=== PATIENT | female | born 1960 | race Caucasian/White ===

== ENCOUNTER → 2017-02-03 | Outpatient (CLI) | payer BC ==
--- NOTE | 2017-02-06 10:45 | MM ---
Reason for exam: screening (asymptomatic). Last mammogram was performed 1 year and 4 months ago. History: Patient is postmenopausal. Family history of breast cancer in mother at age 59, breast cancer in maternal grandmother at age 69, and breast cancer in cousin. Benign left mammotome panel of the left breast, January 25, 2012. Took hormonal contraceptives for 10 years. Physical Findings: A clinical breast exam by your physician is recommended on an annual basis and results should be correlated with mammographic findings. MG 3D Screening Mammo W/Cad Bilateral CC and MLO view(s) were taken. Prior study comparison: September 28, 2015, bilateral MG screening mammo w CAD. February 21, 2014, bilateral MG screening mammo w CAD. There are scattered fibroglandular densities. No suspicious abnormality. No significant changes when compared with prior studies. ASSESSMENT: Negative, BI-RAD 1 RECOMMENDATION: Routine screening mammogram of both breasts in 1 year.
== END | disposition home or self-care (01) ==
LOC: RADMAMWWP 09:04
PROVIDERS: ATTEND Family Medicine
DX: Z12.31 Encounter for screening mammogram for malignant neoplasm of breast (principal); Z80.3 Family history of malignant neoplasm of breast
CPT/HCPCS: 77063; G0202

== ENCOUNTER 2018-03-16 06:53 | Day surgery (SDC) | payer BC ==
[2018-03-14 16:03] VITALS: BMI 45.3
[~2018-03-16 06:53] MED LIST: LACTATED RINGERS 1,000 ML IV SCH
[2018-03-16] MEDS ORDERED: LACTATED RINGERS 1,000 ML IV ONE (07:04)
[2018-03-16 07:13] VITALS: TEMP 98.6
[2018-03-16 07:18] LABS: Glucose,Whole Blood 138 mg/dL (75-99)
[2018-03-16] MEDS ORDERED: PROPOFOL 10 MG/ML 20 ML VIAL IV ONE (07:40)
[2018-03-16] MEDS ORDERED: LIDOCAINE 1% INJ 10MG/ML (20 ML MDV) ONE (07:40)
--- NOTE | 2018-03-16 07:58 | P.PCN ---
Date of Procedure: 03/16/18 Procedure(s) Performed: BRIEF HISTORY: Patient is a 57-year-old pleasant female, scheduled for an elective colonoscopy as a part of screening for colorectal neoplasia. PROCEDURE PERFORMED: Colonoscopy with biopsy and snare polypectomy. PREOPERATIVE DIAGNOSIS: Screening for colon cancer. IV sedation per Anesthesia. PROCEDURE: After informed consent was obtained, the patient, was brought into the endoscopy unit. IV sedation was administered by Anesthesia under continuous monitoring. Digital rectal examination was normal. Initially the Olympus CF- 160 flexible video colonoscope was then inserted in the rectum, gradually advanced into the cecum without any difficulty. Careful examination was performed as the scope was gradually being withdrawn. Ileocecal valve and the appendiceal orifice were visualized and appeared normal. Prep was excellent. Mucosa of the cecum, ascending colon, transverse colon, appeared normal. In the descending colon there was a 3-4 mm sessile polyp removed by cold biopsy. In the sigmoid colon there was a 1 cm centimeter polyp removed by snare polypectomy. Rest of the descending colon, sigmoid colon, and rectum appeared normal. Retroflexion was performed in the rectum and no lesions were seen. The patient tolerated the procedure well. IMPRESSION: 3-4 mm sessile descending colon polyp status post removal by cold biopsy 1 cm pedunculated sigmoid colon polyp status post snare polypectomy RECOMMENDATIONS: Findings of this examination were discussed with the patient as well as her family. She was advised to follow with the biopsy results. She can have a repeat surveillance colonoscopy in 3 years from now based the biopsy results.
[2018-03-16 08:04] VITALS: RESP 16
[2018-03-16 08:29] VITALS: BP 153/88; PULSE 78
== END 2018-03-16 09:00 | disposition home or self-care (01) ==
LOC: ORWHC2ENDO 06:53
PROVIDERS: ATTEND Internal Medicine Gastroenterology
DX: Z12.11 Encounter for screening for malignant neoplasm of colon (principal); K63.5 Polyp of colon; D12.5 Benign neoplasm of sigmoid colon; E11.9 Type 2 diabetes mellitus without complications; J45.909 Unspecified asthma, uncomplicated; I10 Essential (primary) hypertension; E78.5 Hyperlipidemia, unspecified; Z88.0 Allergy status to penicillin; Z88.8 Allergy status to other drugs, medicaments and biological substances; Z79.84 Long term (current) use of oral hypoglycemic drugs; Z79.899 Other long term (current) drug therapy
CPT/HCPCS: 88305; 45385; 45380; J2001; J2704

== ENCOUNTER → 2018-03-23 | Outpatient (CLI) | payer BC ==
--- NOTE | 2018-03-26 13:21 | MM ---
Reason for exam: screening (asymptomatic). Last mammogram was performed 1 year and 2 months ago. History: Patient is postmenopausal. Family history of breast cancer in mother at age 59, breast cancer in maternal grandmother at age 69, and breast cancer in cousin. Benign left mammotome panel of the left breast, January 25, 2012. Took hormonal contraceptives for 10 years. Physical Findings: A clinical breast exam by your physician is recommended on an annual basis and results should be correlated with mammographic findings. MG 3D Screening Mammo W/Cad Bilateral CC, MLO, and XCCL view(s) were taken. Prior study comparison: February 03, 2017, bilateral MG 3d screening mammo w/cad. September 28, 2015, bilateral MG screening mammo w CAD. The breast tissue is almost entirely fat. No significant changes when compared with prior studies. ASSESSMENT: Benign, BI-RAD 2 RECOMMENDATION: Routine screening mammogram of both breasts in 1 year.
== END | disposition home or self-care (01) ==
LOC: RADMAMWWP 14:16
PROVIDERS: ATTEND Family Medicine
DX: Z12.31 Encounter for screening mammogram for malignant neoplasm of breast (principal)
CPT/HCPCS: 77063; 77067

== ENCOUNTER 2019-03-19 20:52 | Emergency (ER) | payer BC ==
[2019-03-19 21:11] VITALS: RESP 18; TEMP 98.5
[2019-03-19] MEDS ORDERED: KETOROLAC 60 MG/2 ML VIAL IM STA (22:25)
--- NOTE | 2019-03-19 22:48 | XR ---
EXAMINATION TYPE: XR chest 2V DATE OF EXAM: 03/19/2019 COMPARISON: 01/30/2014 HISTORY: Neck pain TECHNIQUE: Frontal and lateral views of the chest are obtained. FINDINGS: Heart and mediastinum are normal. Lungs are clear. Diaphragm is normal. Bony thorax appear s normal. There is cervical spine fusion surgery. IMPRESSION: No active cardiopulmonary disease. No change.
--- NOTE | 2019-03-19 23:45 | ED ---
Back Pain HPI - General Chief Complaint: Back Pain/Injury Stated Complaint: back pain Time Seen by Provider: 03/19/19 21:10 Source: patient Limitations: no limitations - History of Present Illness Initial Comments: The patient is a 58-year-old female who presents to the emergency department with reported back pain. She reports that the pain has been present for the past several days. She describes it as a sharp shooting sensation which starts in between her scapula and spinal column on the left side. The pain then radiates forward through to her breast. She states the pain is worse with movement and better with rest. She denies a pleuritic chest pain. No history of DVTs or PEs. No family history of blood clotting disorders. No recent travel or surgeries. Denies any calf pain or swelling. Denies a history of cardiac disease. Denies any anterior chest pain or shortness of breath. Does report recent upper respiratory infection were she had a persistent cough for 3 weeks. States that this has improved after she was on a course of steroids. She denies hemoptysis. No associated nausea, vomiting or diaphoresis. Does admit to a history of similar in the past for which he was diagnosed as a "musculoskeletal" etiology. Denies any abdominal pain or changes in her bowel or bladder habits. There are no alleviating, precipitating or modifying factors - Related Data Home Medications Medication Instructions Recorded Confirmed Sertraline [Zoloft] 100 mg PO DAILY 10/24/13 03/19/19 Atorvastatin [Lipitor] 40 mg PO HS 03/14/18 03/19/19 Budesonide/Formoterol Fumarate 2 puff INHALATION DAILY 03/14/18 03/19/19 [Symbicort 80-4.5 Mcg Inhaler] Metoprolol Tartrate [Lopressor] 100 mg PO BID 03/14/18 03/19/19 Pioglitazone HCl 45 mg PO DAILY 03/14/18 03/19/19 amLODIPine BESYLATE/BENAZEPRIL 1 tab PO DAILY 03/14/18 03/19/19 [amLODIPine BESYLATE/BENAZEPRIL 10-20 MG] glipiZIDE [Glucotrol] 10 mg PO BID 03/14/18 03/19/19 Fluticasone Nasal Wagoner [Flonase 1 spray EA NOSTRIL DAILY 03/19/19 03/19/19 Nasal Wagoner] Previous Rx's Medication Instructions Recorded Ibuprofen [Motrin] 600 mg PO Q8HR PRN #20 tab 03/19/19 Methocarbamol [Robaxin] 500 mg PO TID PRN #15 tab 03/19/19 Allergies Allergy/AdvReac Type Severity Reaction Status Date / Time Penicillins Allergy Rash/Hives Verified 03/19/19 23:02 metformin AdvReac Diarrhea Verified 03/19/19 23:02 Review of Systems ROS Statement: Those systems with pertinent positive or pertinent negative responses have been documented in the HPI. ROS Other: All systems not noted in ROS Statement are negative. Past Medical History Past Medical History: Asthma, Diabetes Mellitus, Hyperlipidemia, Hypertension History of Any Multi-Drug Resistant Organisms: None Reported Past Surgical History: Section Additional Past Surgical History / Comment(s): CERVICAL FUSION Past Anesthesia/Blood Transfusion Reactions: No Reported Reaction Past Psychological History: Anxiety Smoking Status: Never smoker Past Alcohol Use History: None Reported Past Drug Use History: None Reported - Past Family History Mother Family Medical History: Cancer General Exam Limitations: no limitations General appearance: alert, in no apparent distress Head exam: Present: atraumatic, normocephalic, normal inspection Eye exam: Present: normal appearance, PERRL, EOMI. Absent: scleral icterus, conjunctival injection, periorbital swelling ENT exam: Present: normal exam, mucous membranes moist Neck exam: Present: normal inspection. Absent: tenderness, meningismus, lymphadenopathy Respiratory exam: Present: normal lung sounds bilaterally. Absent: respiratory distress, wheezes, rales, rhonchi, stridor Cardiovascular Exam: Present: regular rate, normal rhythm, normal heart sounds. Absent: systolic murmur, diastolic murmur, rubs, gallop, clicks GI/Abdominal exam: Present: soft, normal bowel sounds. Absent: distended, tenderness, guarding, rebound, rigid Extremities exam: Present: normal inspection, full ROM, normal capillary refill. Absent: tenderness, pedal edema, joint swelling, calf tenderness Back exam: Present: normal inspection, tenderness (to palpation of rhomboid muscle on the left. ), muscle spasm Neurological exam: Present: alert, oriented X3, CN II-XII intact Psychiatric exam: Present: normal affect, normal mood Skin exam: Present: warm, dry, intact, normal color. Absent: rash Course Vital Signs 03/19/19 03/20/19 21:08 00:00 Temperature 98.5 F 98.5 F Pulse Rate 80 75 Respiratory 18 18 Rate Blood Pressure 154/71 150/68 O2 Sat by Pulse 96 96 Oximetry Medical Decision Making - Medical Decision Making Upon arrival the patient is placed in room 31. Physical exam is performed. The patient's pain is reproducible upon palpation. I did discuss diagnosis, differential and treatment options. I did recommend laboratory studies, chest x-ray and an EKG. The patient refused laboratory studies stating she did believe that it was musculoskeletal in nature and her son needed to work in the morning. She does allow me to complete an EKG and a chest x-ray. She is given 30 mg IM Toradol. Upon return the results I did discuss them with the patient. Chest x-ray is essentially unremarkable. She does report that her pain is markedly improved with the Toradol administration. I did discuss diagnosis, differential and treatment options. At this time the patient will be discharged home. She is instructed take Motrin every 6 hours as needed. She may also take a muscle relaxer. I did discuss the side effect profile of the medication. She is to not work or drive while taking the medications. The patient understood this. She needs to follow up with the primary care doctor within 2-4 days. If she has any new or worsening symptoms she should return to the emergency room. The patient was then discharged home in stable condition - EKG Data EKG Comments: EKG demonstrates a normal sinus rhythm with a ventricular rate of 60. NM interval 160. QRS 82. QTC 435. No acute ST segment elevations or depressions concerning for ischemic changes Disposition Clinical Impression: Chest wall pain Disposition: HOME SELF-CARE Condition: Stable Instructions (If sedation given, give patient instructions): Costochondritis (ED) Additional Instructions: Please follow-up with your primary care doctor within 2-4 days. Return to the emergency room for any new or worsening symptoms Prescriptions: Ibuprofen [Motrin] 600 mg PO Q8HR PRN #20 tab PRN Reason: Pain Methocarbamol [Robaxin] 500 mg PO TID PRN #15 tab PRN Reason: muscle spasms Is patient prescribed a controlled substance at d/c from ED?: No Referrals: Raheel Hernandez DO [Primary Care Provider] - 1-2 days Time of Disposition: 23:45
[2019-03-20 00:08] VITALS: BP 150/68; PULSE 75
== END 2019-03-20 | disposition home or self-care (01) ==
LOC: EC 20:52
DX: R07.89 Other chest pain (principal); M62.830 Muscle spasm of back; R05 Cough; J45.909 Unspecified asthma, uncomplicated; E11.9 Type 2 diabetes mellitus without complications; E78.5 Hyperlipidemia, unspecified; I10 Essential (primary) hypertension; F41.9 Anxiety disorder, unspecified; Z88.0 Allergy status to penicillin; Z88.8 Allergy status to other drugs, medicaments and biological substances; Z79.51 Long term (current) use of inhaled steroids; Z79.84 Long term (current) use of oral hypoglycemic drugs; Z79.899 Other long term (current) drug therapy; Z98.1 Arthrodesis status
CPT/HCPCS: 99283; 96372; 93005; 71046; J1885

== ENCOUNTER → 2019-03-25 | Outpatient (CLI) | payer BC ==
--- NOTE | 2019-03-26 09:16 | MM ---
Reason for exam: screening (asymptomatic). Last mammogram was performed 1 year ago. History: Patient is postmenopausal. Family history of breast cancer in mother at age 59, breast cancer in maternal grandmother at age 69, and breast cancer in cousin. Benign left mammotome panel of the left breast, January 25, 2012. Took hormonal contraceptives for 10 years. Physical Findings: A clinical breast exam by your physician is recommended on an annual basis and results should be correlated with mammographic findings. MG Screening Mammo w CAD Bilateral CC and MLO view(s) were taken. Prior study comparison: March 23, 2018, bilateral MG 3d screening mammo w/cad. February 03, 2017, bilateral MG 3d screening mammo w/cad. There are scattered fibroglandular densities. There is no discrete abnormality. No significant changes when compared with prior studies. ASSESSMENT: Negative, BI-RAD 1 RECOMMENDATION: Routine screening mammogram of both breasts in 1 year.
== END | disposition home or self-care (01) ==
LOC: RADMAMWWP 10:00
PROVIDERS: ATTEND Family Medicine
DX: Z12.31 Encounter for screening mammogram for malignant neoplasm of breast (principal)
CPT/HCPCS: 77067

== ENCOUNTER → 2021-01-19 | Outpatient (CLI) | payer BC ==
--- NOTE | 2021-01-20 10:29 | ECHOF ---
Referral Reason:R01.1 Cardiac murmur MEASUREMENTS -------- HEIGHT: 152.4 cm WEIGHT: 117.9 kg BP: RVIDd: 3.1 cm (< 3.3) IVSd: 0.9 cm (0.6 - 1.1) LVIDd: 4.5 cm (3.9 - 5.3) LVPWd: 1.7 cm (0.6 - 1.1) IVSs: 1.3 cm LVIDs: 3.5 cm LVPWs: 1.8 cm LA Diam: 4.6 cm (2.7 - 3.8) Ao Diam: 2.6 cm (2.0 - 3.7) LA Diam: 4.7 cm (2.7 - 3.8) MV EXCURSION: 14.789 mm (> 18.000) MV EF SLOPE: 62 mm/s (70 - 150) EPSS: 0.3 cm MV E Mahad: 1.17 m/s MV DecT: 151 ms MV A Mahad: 0.91 m/s MV E/A Ratio: 1.29 AV maxP.97 mmHg AV meanP.99 mmHg RAP: 5.00 mmHg RVSP: 27.07 mmHg FINDINGS -------- Sinus rhythm. Morbid Obesity The left ventricular size is normal. There is mild concentric left ventricular hypertrophy. Overa ll left ventricular systolic function is low-normal with, an EF between 50 - 55 %. The right ventricle is normal in size. The left atrium is mildly dilated. The right atrial size is normal. The aortic valve was not well visualized. There is mild aortic stenosis present. Peak/mean gradie nt across the Aortic Valve is 19.97mmHg / 10.99mmHg. Mild mitral regurgitation is present. Mild tricuspid regurgitation present. Right ventricular systolic pressure is normal at < 35 mmHg. The pulmonic valve was not well visualized. There is no pericardial effusion. CONCLUSIONS -------- 1. Morbid Obesity 2. The left ventricular size is normal. 3. There is mild concentric left ventricular hypertrophy. 4. Overall left ventricular systolic function is low-normal with, an EF between 50 - 55 %. 5. The right ventricle is normal in size. 6. The left atrium is mildly dilated. 7. The right atrial size is normal. 8. The aortic valve was not well visualized. 9. There is mild aortic stenosis present. 10. Mild mitral regurgitation is present. 11. Mild tricuspid regurgitation present. 12. The pulmonic valve was not well visualized. 13. There is no pericardial effusion. MANAGER CONFIGURATION: Greta Acevedo RDCS
== END | disposition home or self-care (01) ==
LOC: RADECHMAIN 15:57
PROVIDERS: ATTEND Physician Assistant Medical
DX: I08.1 Rheumatic disorders of both mitral and tricuspid valves (principal); E66.01 Morbid (severe) obesity due to excess calories
CPT/HCPCS: 93306

== ENCOUNTER 2022-02-26 13:38 | Inpatient (IN) | payer BC ==
[2022-02-26] MEDS ORDERED: IPRATROPIUM-ALBUTEROL 3 ML NEB INHALATION STA (15:19)
[2022-02-26] MEDS ORDERED: SODIUM CHLORIDE 0.9% 1,000 ML IV STA (15:19)
[2022-02-26] MEDS ORDERED: methylPREDNISolone SOD SUCCI 125 MG/2 ML VIAL IV STA (15:19)
[2022-02-26 16:41] LABS: Albumin 3.4 g/dL (3.5-5.0); Potassium 4.2 mmol/L (3.5-5.1); Total Bilirubin 1.2 mg/dL (0.2-1.3); Total Protein 6.5 g/dL (6.3-8.2)
--- NOTE | 2022-02-26 16:41 | ED ---
SOB HPI - General Chief Complaint: Shortness of Breath Stated Complaint: Dehydration,Cough Time Seen by Provider: 02/26/22 15:09 Source: patient Mode of arrival: wheelchair Limitations: no limitations - History of Present Illness Initial Comments: This 61-year-old female presents with a complaint of some cough and shortness of breath. She also feels somewhat weak. She states that her symptoms came on 5 days ago. She's had some dry heaves initially but then this seemed to resolve. She gets short of breath with exertion. She denies any actual fever or chest pain. She states that her urine was dark at one point. She denies any leg pain or swelling. She denies any history of PE or DVT. She does relate a history of COPD. She does take inhalers in this regard. She denies any other complaints or modifying factors. She states that her cough has only been productive with no production. She does follow up with Dr. Abernathy regularly as she was diagnosed with a heart murmur. She did not require any treatment in this regard. She is status post follow-up with them this month. The patient denies any history of atrial fibrillation in the past or any known heart arrhythmias. She denies being on any blood thinners other than aspirin. - Related Data Home Medications Medication Instructions Recorded Confirmed Sertraline [Zoloft] 100 mg PO DIRECTED 10/24/13 02/26/22 Atorvastatin [Lipitor] 40 mg PO DIRECTED 03/14/18 02/26/22 Metoprolol Tartrate [Lopressor] 100 mg PO DIRECTED 03/14/18 02/26/22 Pioglitazone HCl 45 mg PO DIRECTED 03/14/18 02/26/22 amLODIPine BESYLATE/BENAZEPRIL 1 tab PO DIRECTED 03/14/18 02/26/22 [amLODIPine BESYLATE/BENAZEPRIL 10-20 MG] glipiZIDE [Glucotrol] 10 mg PO BID 03/14/18 02/26/22 Albuterol Sulfate [Albuterol 2 puff PO RT-Q6H PRN 02/26/22 02/26/22 Sulfate Hfa] Aspirin EC [Ecotrin Low Dose] 81 mg PO HS 02/26/22 02/26/22 Fluticasone Propion/Salmeterol 1 puff INHALATION RT-BID 02/26/22 02/26/22 [Fluticasone-Salmeterol 113-14] Allergies Allergy/AdvReac Type Severity Reaction Status Date / Time Penicillins Allergy Rash/Hives Verified 02/26/22 14:25 metformin AdvReac Diarrhea Verified 02/26/22 14:25 Review of Systems ROS Statement: Those systems with pertinent positive or pertinent negative responses have been documented in the HPI. ROS Other: All systems not noted in ROS Statement are negative. Past Medical History Past Medical History: Asthma, Diabetes Mellitus, Hyperlipidemia, Hypertension History of Any Multi-Drug Resistant Organisms: None Reported Past Surgical History: Section Additional Past Surgical History / Comment(s): CERVICAL FUSION Past Anesthesia/Blood Transfusion Reactions: No Reported Reaction Past Psychological History: Anxiety Past Alcohol Use History: None Reported Past Drug Use History: None Reported - Past Family History Mother Family Medical History: Cancer General Exam - General Exam Comments Initial Comments: GENERAL: The patient is well nourished and well hydrated. Increased body mass index is noted. VITAL SIGNS: Heart rate, blood pressure, respiratory rate reviewed as recorded in nurse's notes. EYES: Pupils are round and reactive. Extraocular movements are intact. No conjunctival / lid redness or swelling. ENT: No external evidence of injury, swelling, or ecchymosis. Airway is patent. Throat is clear. NECK: Nontender. No swelling or evidence of injury. No subcutaneous emphysema. Trachea is midline. No thyroid mass. HEART: Regular rate and rhythm. Good peripheral pulses. LUNGS/CHEST: Breath sounds clear and equal bilaterally. No rales, rhonchi, or wheezes. No ecchymosis, subcutaneous emphysema, or tenderness. ABDOMEN: Abdomen soft without tenderness. No palpable masses or organomegaly. No peritoneal signs. No abdominal wall swelling or ecchymosis. EXTREMITIES: No extremity tenderness. Normal muscle tone and function. No thoracolumbar tenderness. NEUROLOGIC: Sensation is grossly intact. Cranial nerve exam reveals face is symmetrical, tongue is midline, speech is clear. SKIN: No abrasions or ecchymosis is noted. No induration or masses noted. PSYCHIATRIC: Alert and oriented. Appropriate behavior and judgment. Limitations: no limitations Course Vital Signs 02/26/22 02/26/22 02/26/22 14:19 16:00 16:37 Temperature 97.5 F L Pulse Rate 109 H 100 Respiratory 16 24 Rate Blood Pressure 112/54 O2 Sat by Pulse 90 L Oximetry 02/26/22 02/26/22 16:45 17:44 Temperature Pulse Rate 106 H 111 H Respiratory 24 Rate Blood Pressure 135/56 O2 Sat by Pulse 92 L Oximetry Medical Decision Making - Medical Decision Making The patient was seen and examined. All diagnostics were reviewed. 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 Her pulse ox initially is 90% on room air. The patient also had a x-ray of the chest and this does show pneumonia. There is markedly change as compared to previous chest x-ray in 2019. Laboratory shows white blood cell count is elevated. Her blood sugar also is elevated as well as her kidney function studies. Her sodium and chloride are slightly low. She is given some IV fluid hydration. Her troponin came back elevated. Significant fluid hydration is not given due to cardiac status and prevention of fluid overload. Case is discussed with internal med icishanta, Dr. Ovalle and she is agreeable with admission. Patient is started on Rocephin and Zithromax. She receives a DuoNeb breathing treatment. She also receives oxygen and is at 93% on 2 L per nasal cannula on recheck. She relates that she is feeling slightly improved. It is felt as though she likely would qualify for full admission. In addition, the EKG shows atrial fibrillation with rapid ventricular response at 116. There is no acute ST-T wave changes noted. The QRS duration is 97 and the QTc interval is 390. This appears to be new- onset atrial fibrillation. Patient is started on heparin intravenously. Cardiology consult is also placed. When watched on the monitor her heart rate is averaging between 101 105 and it is not felt as though at this time she would require IV Cardizem. She was given a 500 mL bolus to see if this would help with heart rate. - Lab Data Result diagrams: 02/26/22 17:18 02/26/22 15:25 Lab Results 02/26/22 02/26/22 02/26/22 Range/Units 15:25 15:25 15:25 WBC (3.8-10.6) k/uL RBC (3.80-5.40) m/uL Hgb (11.4-16.0) gm/dL Hct (34.0-46.0) % MCV (80.0-100.0) fL MCH (25.0-35.0) pg MCHC (31.0-37.0) g/dL RDW (11.5-15.5) % Plt Count (150-450) k/uL MPV Neutrophils % % Lymphocytes % % Monocytes % % Eosinophils % % Basophils % % Neutrophils # (1.3-7.7) k/uL Lymphocytes # (1.0-4.8) k/uL Monocytes # (0-1.0) k/uL Eosinophils # (0-0.7) k/uL Basophils # (0-0.2) k/uL PT 10.0 (9.0-12.0) sec INR 0.9 (<1.2) APTT 22.6 (22.0-30.0) sec Sodium 128 L (137-145) mmol/L Potassium 4.2 (3.5-5.1) mmol/L Chloride 90 L (98-107) mmol/L Carbon Dioxide 23 (22-30) mmol/L Anion Gap 15 mmol/L BUN 84 H (7-17) mg/dL Creatinine 1.71 H (0.52-1.04) mg/dL Est GFR (CKD-EPI)AfAm 36 (>60 ml/min/1.73 sqM) Est GFR (CKD-EPI)NonAf 31 (>60 ml/min/1.73 sqM) Glucose 289 H (74-99) mg/dL Plasma Lactic Acid Kade 1.3 (0.7-2.0) mmol/L Calcium 9.0 (8.4-10.2) mg/dL Total Bilirubin 1.2 (0.2-1.3) mg/dL AST 46 H (14-36) U/L ALT 27 (4-34) U/L Alkaline Phosphatase 85 (38-126) U/L Troponin I (0.000-0.034) ng/mL NT-Pro-B Natriuret Pep pg/mL Total Protein 6.5 (6.3-8.2) g/dL Albumin 3.4 L (3.5-5.0) g/dL Coronavirus (PCR) (Not Detectd) Influenza Type A RNA (Not Detectd) Influenza Type B (PCR) (Not Detectd) 02/26/22 02/26/22 02/26/22 Range/Units 15:25 15:25 15:25 WBC (3.8-10.6) k/uL RBC (3.80-5.40) m/uL Hgb (11.4-16.0) gm/dL Hct (34.0-46.0) % MCV (80.0-100.0) fL MCH (25.0-35.0) pg MCHC (31.0-37.0) g/dL RDW (11.5-15.5) % Plt Count (150-450) k/uL MPV Neutrophils % % Lymphocytes % % Monocytes % % Eosinophils % % Basophils % % Neutrophils # (1.3-7.7) k/uL Lymphocytes # (1.0-4.8) k/uL Monocytes # (0-1.0) k/uL Eosinophils # (0-0.7) k/uL Basophils # (0-0.2) k/uL PT (9.0-12.0) sec INR (<1.2) APTT (22.0-30.0) sec Sodium (137-145) mmol/L Potassium (3.5-5.1) mmol/L Chloride (98-107) mmol/L Carbon Dioxide (22-30) mmol/L Anion Gap mmol/L BUN (7-17) mg/dL Creatinine (0.52-1.04) mg/dL Est GFR (CKD-EPI)AfAm (>60 ml/min/1.73 sqM) Est GFR (CKD-EPI)NonAf (>60 ml/min/1.73 sqM) Glucose (74-99) mg/dL Plasma Lactic Acid Kade (0.7-2.0) mmol/L Calcium (8.4-10.2) mg/dL Total Bilirubin (0.2-1.3) mg/dL AST (14-36) U/L ALT (4-34) U/L Alkaline Phosphatase (38-126) U/L Troponin I 0.047 H* (0.000-0.034) ng/mL NT-Pro-B Natriuret Pep 83620 pg/mL Total Protein (6.3-8.2) g/dL Albumin (3.5-5.0) g/dL Coronavirus (PCR) (Not Detectd) Influenza Type A RNA Not Detected (Not Detectd) Influenza Type B (PCR) Not Detected (Not Detectd) 02/26/22 02/26/22 Range/Units 15:25 17:18 WBC 12.5 H (3.8-10.6) k/uL RBC 3.98 (3.80-5.40) m/uL Hgb 11.7 (11.4-16.0) gm/dL Hct 35.0 (34.0-46.0) % MCV 87.9 (80.0-100.0) fL MCH 29.3 (25.0-35.0) pg MCHC 33.4 (31.0-37.0) g/dL RDW 14.1 (11.5-15.5) % Plt Count 316 (150-450) k/uL MPV 9.4 Neutrophils % 85 % Lymphocytes % 9 % Monocytes % 5 % Eosinophils % 0 % Basophils % 0 % Neutrophils # 10.6 H (1.3-7.7) k/uL Lymphocytes # 1.1 (1.0-4.8) k/uL Monocytes # 0.6 (0-1.0) k/uL Eosinophils # 0.0 (0-0.7) k/uL Basophils # 0.0 (0-0.2) k/uL PT (9.0-12.0) sec INR (<1.2) APTT (22.0-30.0) sec Sodium (137-145) mmol/L Potassium (3.5-5.1) mmol/L Chloride (98-107) mmol/L Carbon Dioxide (22-30) mmol/L Anion Gap mmol/L BUN (7-17) mg/dL Creatinine (0.52-1.04) mg/dL Est GFR (CKD-EPI)AfAm (>60 ml/min/1.73 sqM) Est GFR (CKD-EPI)NonAf (>60 ml/min/1.73 sqM) Glucose (74-99) mg/dL Plasma Lactic Acid Kade (0.7-2.0) mmol/L Calcium (8.4-10.2) mg/dL Total Bilirubin (0.2-1.3) mg/dL AST (14-36) U/L ALT (4-34) U/L Alkaline Phosphatase (38-126) U/L Troponin I (0.000-0.034) ng/mL NT-Pro-B Natriuret Pep pg/mL Total Protein (6.3-8.2) g/dL Albumin (3.5-5.0) g/dL Coronavirus (PCR) Not Detected (Not Detectd) Influenza Type A RNA (Not Detectd) Influenza Type B (PCR) (Not Detectd) Disposition Clinical Impression: Hypoxia, Dyspnea, Cough, Weakness, Pneumonia, Leukocytosis, Hyperglycemia, Acute kidney injury, Morbid obesity, Elevated troponin, Atrial fibrillation with rapid ventricular response, New onset atrial fibrillation Disposition: ADMITTED IP TO THIS HOSP Condition: Fair Is patient prescribed a controlled substance at d/c from ED?: No Referrals: Raheel Hernandez DO [Primary Care Provider] - 1-2 days Time of Disposition: 18:27 Decision Date: 02/26/22 Decision Time: 18:27
--- NOTE | 2022-02-26 17:03 | XR ---
EXAMINATION TYPE: XR chest 2V DATE OF EXAM: 02/26/2022 COMPARISON: 03/19/2019 HISTORY: Difficulty breathing TECHNIQUE: Frontal and lateral views of the chest are obtained. FINDINGS: There has been interval development of multiple focal areas partial airspace opacity in th e right lung consistent with an acute infiltrate. Left lung is clear. The heart and pulmonary vasculature are normal. The osseous structures are intact. IMPRESSION: Multifocal right lung airspace opacities consistent with acute inflammation, likely pneumonic infiltr ate.
[2022-02-26 17:45] LABS: Basophils % (A) 0 %; Eosinophils % (A) 0 %; HGB 11.7 gm/dL (11.4-16.0); Lymphocytes # (A) 1.1 k/uL (1.0-4.8); Lymphocytes % (A) 9 %; MCH 29.3 pg (25.0-35.0); MCHC 33.4 g/dL (31.0-37.0); MCV 87.9 fL (80.0-100.0); Mean Platelet Volume 9.4; Monocytes # (A) 0.6 k/uL (0-1.0); Monocytes % (A) 5 %; Neutrophils # (A) 10.6 k/uL (1.3-7.7); Neutrophils % (A) 85 %; Platelet Count 316 k/uL (150-450); RBC 3.98 m/uL (3.80-5.40); RDW 14.1 % (11.5-15.5); WBC 12.5 k/uL (3.8-10.6)
[2022-02-26] MEDS ORDERED: AZITHROMYCIN 500 MG in SODIUM CHLORIDE 0.9% 250 ML IVPB STA (18:10)
[2022-02-26] MEDS ORDERED: NITROGLYCERIN OINT 1 INCH/GM PACKET TOPICAL STA (18:10)
[2022-02-26] MEDS ORDERED: ASPIRIN 81 MG PO STA (18:10)
[2022-02-26] MEDS ORDERED: SODIUM CHLORIDE 0.9% 500 ML IV STA (18:41)
[2022-02-26 18:55] LABS: INR 0.9 (<1.2); Partial Thromboplastin Time 22.6 sec (22.0-30.0)
[2022-02-26] MEDS ORDERED: HEPARIN SODIUM 1,000 UN/ML (10ML VL) IV ONE (19:21)
[2022-02-26] MEDS ORDERED: HEPARIN SODIUM 1,000 UN/ML (10ML VL) IV PRN (19:21)
[2022-02-26] MEDS ORDERED: PNEUMONIA PROTOCOL UTILIZED 1 EACH MISC PO PRN (19:22)
[2022-02-26] MEDS ORDERED: DEXTROSE 50% SYRINGE 50 ML IVP PRN (19:26)
[2022-02-26] MEDS ORDERED: PIOGLITAZONE 45 MG TAB PO SCH (19:30)
[2022-02-26] MEDS ORDERED: HEPARIN SOD,PORK IN 0.45% NACL 25,000 UNIT in 0.45% NACL 1 250ML.BAG IV SCH (19:30)
[2022-02-26] MEDS ORDERED: NON FORMULARY DRUG (Amlodipine Besylate/Benazepril [Amlodipine Besylate/Benazepril 10-20 M PO SCH (19:30)
[2022-02-26] MEDS ORDERED: ACETAMINOPHEN TAB 325 MG TAB PO PRN (19:44)
--- NOTE | 2022-02-26 20:25 | P.HPIM ---
History of Present Illness H&P Date: 02/26/22 Chief Complaint: shortness of breath 61 year old female with diabetes mellitus on oral hypoglycemic, hypertension, COPD not on home oxygen patient comes in with 3-5 days history of progressive redness of breath, with minimal activity, and today became SOB at rest. denies any orthopnea or PNDs. she does have history of COPD not on home oxygen, she uses her inhalers normally twice a day, and this was not helping this time, denies any wheezing, denies any smoking or smoke exposure. she also report dry cough denies any hemoptysis , she also reports frequent dry heaving with bowel and urinary incontinence associated with the dry heaves. she denies any fever, chills, denies any known sick contacts. she denies any recent hospital stay , but she does report traveling long distance by care couple weeks ago, and she was in a dooley and did not take frequent stops. she denies any history of cancer or blood clots. but she did note that her legs were swollen however improved since then. she does endorse poor po intake , however, she is compliant with her meds. no other family members are sick at this time, she is vaccinated 3 times against covid she otherwise denies any urinary changes, diarrhea , GI bleeding, muscle aches, denies any sore throat, or body aches. denies any abd pain . in the ED , blood work showed elevated WBC , and hyponatremia , DC CXR suggestive of pneumonia , no pleural effusion slightly elevated troponin , denies any chest pain elevated pro BNP EKG showed no acute ST elevation , new onset Afib , she denies any history of afib . she does follow up with cardiology for a heart murmur denies any tobacco smoking, illicit drugs or alcohol . Review of Systems Pertinent positives as noted in HPI. All other systems were reviewed and are negative Past Medical History Past Medical History: Asthma, Diabetes Mellitus, Hyperlipidemia, Hypertension History of Any Multi-Drug Resistant Organisms: None Reported Past Surgical History: Section Additional Past Surgical History / Comment(s): CERVICAL FUSION Past Anesthesia/Blood Transfusion Reactions: No Reported Reaction Past Psychological History: Anxiety Past Alcohol Use History: None Reported Past Drug Use History: None Reported - Past Family History Mother Family Medical History: Cancer Medications and Allergies Home Medications Medication Instructions Recorded Confirmed Type Sertraline [Zoloft] 100 mg PO DIRECTED 10/24/13 02/26/22 History Atorvastatin [Lipitor] 40 mg PO DIRECTED 03/14/18 02/26/22 History Metoprolol Tartrate [Lopressor] 100 mg PO DIRECTED 03/14/18 02/26/22 History Pioglitazone HCl 45 mg PO DIRECTED 03/14/18 02/26/22 History amLODIPine BESYLATE/BENAZEPRIL 1 tab PO DIRECTED 03/14/18 02/26/22 History [amLODIPine BESYLATE/BENAZEPRIL 10-20 MG] glipiZIDE [Glucotrol] 10 mg PO BID 03/14/18 02/26/22 History Albuterol Sulfate [Albuterol 2 puff PO RT-Q6H PRN 02/26/22 02/26/22 History Sulfate Hfa] Aspirin EC [Ecotrin Low Dose] 81 mg PO HS 02/26/22 02/26/22 History Fluticasone Propion/Salmeterol 1 puff INHALATION RT-BID 02/26/22 02/26/22 History [Fluticasone-Salmeterol 113-14] Allergies Allergy/AdvReac Type Severity Reaction Status Date / Time Penicillins Allergy Rash/Hives Verified 02/26/22 14:25 metformin AdvReac Diarrhea Verified 02/26/22 14:25 Physical Exam Vitals: Vital Signs Temp Pulse Resp BP Pulse Ox 02/26/22 17:44 111 H 24 135/56 92 L 02/26/22 16:45 106 H 02/26/22 16:37 100 02/26/22 16:00 24 02/26/22 14:19 97.5 F L 109 H 16 112/54 90 L Intake and Output 02/26/22 02/26/22 02/26/22 06:59 14:59 22:59 Other: Weight 122.47 kg Constitutional: No acute distress, conversant, pleasant, morbid obesity Eyes: Anicteric sclerae, moist conjunctiva, Pupils equal round reactive to light ENMT: NC/AT Oropharynx clear, no erythema, or exudates Neck: Supple, no masses, or JVD No carotid bruits No thyromegaly Lungs: Clear to auscultation Clear to percussion Normal respiratory effort, no accessory muscle use Cardiovascular: Heart irregular in rate and rhythm, No murmurs, gallops, or rubs No peripheral edema Abdominal: Soft Nontender, no guarding, rebound or rigidity Abdomen moving with respiration Normoactive bowel sounds obese limiting exam No palpable mass No abdominal wall hernia noted Skin: Normal temperature, tone, texture, turgor No induration No subcutaneous nodules No rash, lesions No ulcers Extremities: No digital cyanosis No clubbing Pedal pulses intact and symmetrical Radial pulses intact and symmetrical No calf tenderness Psychiatric: Alert and oriented to person, place and time Appropriate affect fair judgement Neuro Muscles Strength 4/5 in all 4 extremities Sensation to light touch grossly present throughout Cranial nerves II-XII grossly intact No focal sensory deficits Lymphatics: no palpable cervical or supraclavicular , or inguinal lymph nodes Results CBC & Chem 7: 02/26/22 17:18 02/26/22 15:25 Labs: Abnormal Lab Results - Last 24 Hours (Table) 02/26/22 02/26/22 02/26/22 Range/Units 15:25 15:25 17:18 WBC 12.5 H (3.8-10.6) k/uL Neutrophils # 10.6 H (1.3-7.7) k/uL Sodium 128 L (137-145) mmol/L Chloride 90 L (98-107) mmol/L BUN 84 H (7-17) mg/dL Creatinine 1.71 H (0.52-1.04) mg/dL Glucose 289 H (74-99) mg/dL AST 46 H (14-36) U/L Troponin I 0.047 H* (0.000-0.034) ng/mL Albumin 3.4 L (3.5-5.0) g/dL Assessment and Plan Assessment: acute hypoxic respiratory failure sepsis secondary to community acquired pneumonia rule out PE , with history of long distance car travel, hypoxemia and new onset afib new onset afib with RVR hyponatremia , dehydration DC , prerenal ATN DM , on oral hypoglycemic agents , with hyperglycemia plan CXR showed right lobe multifocal infilterates follow up cultures check urine legionella CTA chest once renal function improve, to rule out lung mass , and if d dimer elevated to rule out PE empiric antibiotics with azithro and rocephin supplemental oxygen as needed to keep oxygen sat > 94% acute respiratory viral panel negative lactic acid within normal limits patient on heparin drip for new onset afib heart rate ranging in the 100-110, if heart rate persistently > 120 then will initiate Cardizem drip check echocardiogram , 2020 echo showed LVEF 50-55%, mild concentric hypertrophic cardiomyopathy , 1 L bolus saline given in ED continue with IVF hydration with normal saline at 130 cc per hour , if serum sodium worsens, then consider SIADH in the differential avoid nephrotoxic meds monitor sodium level , repeat at midnight then in AM 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
[2022-02-26] MEDS ORDERED: ONDANSETRON 4 MG/2 ML VIAL IVP PRN (20:26)
[2022-02-26] MEDS ORDERED: glipiZIDE 10 MG TAB PO SCH (21:00)
[2022-02-26] MEDS: SYMBICORT 160-4.5 MCG INHALER INHALATION SCH (21:15)
[2022-02-26 22:02] LABS: Glucose,Whole Blood 345 mg/dL (70-110)
[2022-02-26] MEDS: INSULIN ASPART (NovoLOG) 100 UNIT/ML VIAL SQ SCH (22:09)
[2022-02-26] MEDS: METOPROLOL TARTRATE 50 MG TAB PO SCH (22:10)
[2022-02-26] MEDS: ATORVASTATIN 40 MG TAB PO SCH (22:10)
[2022-02-26] MEDS: SERTRALINE 100 MG TAB PO SCH (22:10)
[2022-02-27] MEDS ORDERED: HEPARIN SODIUM 1,000 UN/ML (10ML VL) IV PRN (00:21)
[2022-02-27] MEDS: HEPARIN SOD,PORK IN 0.45% NACL 25,000 UNIT in 0.45% NACL 1 250ML.BAG IV SCH ×3 (00:47→22:25)
[2022-02-27 03:13] LABS: Partial Thromboplastin Time 46.7 sec (22.0-30.0); Prothrombin Time 10.7 sec (9.0-12.0)
[2022-02-27 06:08] LABS: Glucose,Whole Blood 345 mg/dL (70-110)
[2022-02-27] MEDS: INSULIN ASPART (NovoLOG) 100 UNIT/ML VIAL SQ SCH ×4 (06:33→20:10)
[2022-02-27] MEDS: METOPROLOL TARTRATE 50 MG TAB PO SCH ×2 (07:29→20:17)
[2022-02-27] MEDS: IPRATROPIUM-ALBUTEROL 3 ML NEB INHALATION PRN ×3 (08:28→16:35)
[2022-02-27] MEDS: SYMBICORT 160-4.5 MCG INHALER INHALATION SCH ×2 (08:28→20:19)
[2022-02-27 08:49] LABS: Amorphous Sediment,Urine Occasional /hpf; Appearance,Urine Cloudy (Clear); Bacteria,Urine Moderate /hpf; Bilirubin,Urine Negative (Negative); Blood,Urine Small (Negative); Color,Urine Yellow; Glucose,Urine (UA) 2+ (Negative); Hyaline Casts,Urine 48 /lpf (0-2); Ketones,Urine Negative (Negative); Leukocyte Esterase,Urine Small (Negative); Mucus,Urine Rare /hpf; Nitrite,Urine Negative (Negative); PH, Urine 5.5 (5.0-8.0); Protein,Urine Trace (Negative); RBC,Urine 1 /hpf (0-5); Specific Gravity,Urine 1.015 (1.001-1.035); Squamous Epithelial Cell,Urine 6 /hpf (0-4); WBC,Urine 3 /hpf (0-5)
[2022-02-27] MEDS ORDERED: amLODIPine 10 MG TAB PO SCH (09:00)
[2022-02-27] MEDS: AZITHROMYCIN 500 MG in SODIUM CHLORIDE 0.9% 250 ML IVPB SCH (09:16)
[2022-02-27 09:25] LABS: Basophils % (A) 0 %; Eosinophils % (A) 0 %; HCT 32.1 % (34.0-46.0); HGB 10.4 gm/dL (11.4-16.0); Hypochromasia Slight; Lymphocytes # (A) 1.1 k/uL (1.0-4.8); Lymphocytes % (A) 9 %; MCH 28.8 pg (25.0-35.0); MCHC 32.3 g/dL (31.0-37.0); Mean Platelet Volume 10.7; Monocytes # (A) 0.2 k/uL (0-1.0); Monocytes % (A) 2 %; Neutrophils # (A) 10.8 k/uL (1.3-7.7); Neutrophils % (A) 88 %; Platelet Count 250 k/uL (150-450); RDW 14.2 % (11.5-15.5); WBC 12.3 k/uL (3.8-10.6)
--- NOTE | 2022-02-27 10:30 | P.CRDCN ---
History of Present Illness History of present illness: This is Dr. Foster dictating an H/P on this patient The patient was interviewed and examined IMPRESSION / ASSESSMENT: Persistent atrial fibrillation with RVR in the setting of right lung pneumonitis New onset atrial fibrillation/first diagnosis of atrial fibrillation PLAN: Anticoagulation with heparin followed by ELIQUIS Rate control with oral beta blockers. She is currently on metoprolol 100 mg twice daily Continue antihypertensive therapy with amlodipine However she is diabetic and low dose VEDA inhibitor should be initiated even though her creatinine is 1.71 HPI patient presented to the hospital with cough and shortness of breath and weakness She's had symptoms for at least 5 days prior to admission she became a short of breath with minimal exertion When she came to the ER her chest x-ray confirmed a right-sided pneumonia However her twelve-lead EKG showed atrial fibrillation with RVR which is a new diagnosis for She normally sees Dr. Gray in the cardiology office and has an appointment coming up on the On my evaluation she was lying comfortably in bed and did not appear to be short of breath. She stated that she has been short of breath but she does not feel any palpitations or chest discomfort ROS: No fever chills or rigors, no cough, phlegm or expectoration, no nausea, vomiting or diarrhea, no hematuria, dysuria, no musculoskeletal complaints, no strokes or seizures, no skin lesions. EXAMINATION: 116/63 mmHg pulse rate 100 beats a minute afebrile Crackles in the right lung Heart sounds irregular no murmurs Morbid obesity REVIEW OF LABS, ECG & MEDICAL DATA Atrial fibrillation with RVR on twelve-lead EKG with biphasic T waves in V5 and V6 lead 1 Chest x-ray shows right lung airspace opacities consistent with pneumonic infiltrate Past history of hypertension, dyslipidemia and type 2 diabetes White count 12.5 thousand, hemoglobin 10.4 Sodium 129 Potassium 4.2 BUN 84 and creatinine 1.7 Elevated glucose levels Borderline troponins of unclear significance (BTUS) Past Medical History Past Medical History: Asthma, Diabetes Mellitus, Hyperlipidemia, Hypertension History of Any Multi-Drug Resistant Organisms: None Reported Past Surgical History: Section Additional Past Surgical History / Comment(s): CERVICAL FUSION Past Anesthesia/Blood Transfusion Reactions: No Reported Reaction Additional Past Anesthesia/Blood Transfusion Reaction / Comment(s): No history of blood transfusions Past Psychological History: Anxiety Past Alcohol Use History: None Reported Past Drug Use History: None Reported - Past Family History Mother Family Medical History: Cancer Medications and Allergies Home Medications Medication Instructions Recorded Confirmed Type Sertraline [Zoloft] 100 mg PO DIRECTED 10/24/13 02/26/22 History Atorvastatin [Lipitor] 40 mg PO DIRECTED 03/14/18 02/26/22 History Metoprolol Tartrate [Lopressor] 100 mg PO DIRECTED 03/14/18 02/26/22 History Pioglitazone HCl 45 mg PO DIRECTED 03/14/18 02/26/22 History amLODIPine BESYLATE/BENAZEPRIL 1 tab PO DIRECTED 03/14/18 02/26/22 History [amLODIPine BESYLATE/BENAZEPRIL 10-20 MG] glipiZIDE [Glucotrol] 10 mg PO BID 03/14/18 02/26/22 History Albuterol Sulfate [Albuterol 2 puff PO RT-Q6H PRN 02/26/22 02/26/22 History Sulfate Hfa] Aspirin EC [Ecotrin Low Dose] 81 mg PO HS 02/26/22 02/26/22 History Fluticasone Propion/Salmeterol 1 puff INHALATION RT-BID 02/26/22 02/26/22 History [Fluticasone-Salmeterol 113-14] Allergies Allergy/AdvReac Type Severity Reaction Status Date / Time Penicillins Allergy Rash/Hives Verified 02/26/22 14:25 metformin AdvReac Diarrhea Verified 02/26/22 14:25 Physical Exam Vitals: Vital Signs Temp Pulse Pulse Resp BP BP Pulse Ox 02/27/22 08:47 100 02/27/22 08:29 96 02/27/22 07:20 98.1 F 101 H 16 116/63 93 L 02/27/22 04:00 98.1 F 101 H 20 97/54 94 L 02/27/22 02:00 94 20 02/26/22 23:49 98.3 F 94 20 98/51 94 L 02/26/22 19:41 98.1 F 115 H 19 90/51 93 L 02/26/22 17:44 111 H 24 135/56 92 L 02/26/22 16:45 106 H 02/26/22 16:37 100 02/26/22 16:00 24 02/26/22 14:19 97.5 F L 109 H 16 112/54 90 L Intake and Output 02/26/22 02/27/22 02/27/22 22:59 06:59 14:59 Intake Total 240 178.524 Output Total 500 Balance 240 -321.476 Intake: Intake, IV Titration 178.524 Amount Heparin Sod,Pork in 0.45% 178.524 NaCl 25,000 unit In 0.45 % NaCl 1 250ml.bag @ 18 UNITS/KG/HR 22.045 mls/hr IV .[id number] [facility] Rx#: [id number] Oral 240 Output: Urine 500 Other: Voiding Method Toilet # Voids 2 Weight 122.47 kg Results 02/27/22 07:19 02/26/22 22:14 Cardiac Enzymes 02/26/22 02/26/22 02/27/22 Range/Units 15:25 15:25 01:17 AST 46 H (14-36) U/L Troponin I 0.047 H* 0.031 (0.000-0.034) ng/mL Coagulation 02/26/22 02/27/22 02/27/22 Range/Units 15:25 01:17 07:19 PT 10.0 10.7 (9.0-12.0) sec APTT 22.6 46.7 H 85.2 H (22.0-30.0) sec CBC 02/26/22 02/27/22 Range/Units 17:18 07:19 WBC 12.5 H 12.3 H (3.8-10.6) k/uL RBC 3.98 3.60 L (3.80-5.40) m/uL Hgb 11.7 10.4 L (11.4-16.0) gm/dL Hct 35.0 32.1 L (34.0-46.0) % Plt Count 316 250 (150-450) k/uL Comprehensive Metabolic Panel 02/26/22 02/26/22 Range/Units 15:25 22:14 Sodium 128 L 129 L (137-145) mmol/L Potassium 4.2 (3.5-5.1) mmol/L Chloride 90 L (98-107) mmol/L Carbon Dioxide 23 (22-30) mmol/L BUN 84 H (7-17) mg/dL Creatinine 1.71 H (0.52-1.04) mg/dL Glucose 289 H (74-99) mg/dL Calcium 9.0 (8.4-10.2) mg/dL AST 46 H (14-36) U/L ALT 27 (4-34) U/L Alkaline Phosphatase 85 (38-126) U/L Total Protein 6.5 (6.3-8.2) g/dL Albumin 3.4 L (3.5-5.0) g/dL Current Medications Generic Name Dose Route Start Last Admin Trade Name Freq PRN Reason Stop Dose Admin Acetaminophen 650 mg 02/26/22 19:44 Acetaminophen Tab 325 Mg Tab PO Q4HR PRN Fever and/ or Pain Albuterol/Ipratropium 3 ml 02/26/22 19:22 02/27/22 08:28 Ipratropium-Albuterol 3 Ml Neb INHALATION 3 ml RT-Q4H PRN Administration shortness of breath Amlodipine Besylate 10 mg 02/27/22 09:00 02/27/22 07:30 Amlodipine 10 Mg Tab PO 10 mg DAILY GRACIE Administration Aspirin 81 mg 02/27/22 21:00 Aspirin 81 Mg PO HS GRACIE Atorvastatin Calcium 40 mg 02/26/22 21:00 02/26/22 22:10 Atorvastatin 40 Mg Tab PO 40 mg HS GRACIE Administration Budesonide/Formoterol Fumarate 2 puff 02/26/22 20:00 02/27/22 08:28 Symbicort 160-4.5 Mcg Inhaler INHALATION 2 puff RT-BID GRACIE Administration Dextrose/Water 50 ml 02/26/22 19:26 Dextrose 50% Syringe 50 Ml IVP PER PROTOCOL PRN Hypoglycemia Protocol Heparin Sodium (Porcine) 0 unit 02/27/22 00:21 Heparin Sodium 1,000 Un/Ml (10ml Vl) IV PER PROTOCOL PRN Low PTT Protocol Ceftriaxone Sodium 2 gm/ 50 mls @ 100 mls/hr 02/27/22 09:00 02/27/22 07:30 Sodium Chloride IVPB 03/02/22 09:29 100 mls/hr Q24HR GRACIE Administration Protocol Azithromycin 500 mg/ Sodium 250 mls @ 250 mls/hr 02/27/22 09:00 02/27/22 09:16 Chloride IVPB 03/02/22 09:01 250 mls/hr DAILY GRACIE Administration Protocol Heparin Sodium/Sodium Chloride 250 mls @ 22.045 mls/hr 02/27/22 00:30 0 02/27/22 08:53 25,000 unit/ Sodium Chloride IV 16 units/kg/hr .[id number] GRACIE 19.595 mls/hr Administration Protocol 18 UNITS/KG/HR Insulin Aspart 0 unit 02/26/22 21:00 02/27/22 06:33 Insulin Aspart (Novolog) 100 Unit/Ml Vial SQ 8 unit ACHS GRACIE Administration Protocol Metoprolol Tartrate 100 mg 02/26/22 21:00 02/27/22 07:29 Metoprolol Tartrate 50 Mg Tab PO 100 mg BID GRACIE Administration Miscellaneous Information 1 each 02/26/22 19:22 Pneumonia Protocol Utilized 1 Each Misc PO ONCE PRN Per Protocol Ondansetron HCl 4 mg 02/26/22 20:26 Ondansetron 4 Mg/2 Ml Vial IVP Q6HR PRN Nausea And Vomiting Sertraline HCl 100 mg 02/26/22 21:00 02/26/22 22:10 Sertraline 100 Mg Tab PO 100 mg HS GRACIE Administration Intake and Output 02/26/22 02/27/22 02/27/22 22:59 06:59 14:59 Intake Total 240 178.524 Output Total 500 Balance 240 -321.476 Intake: Intake, IV Titration 178.524 Amount Heparin Sod,Pork in 0.45% 178.524 NaCl 25,000 unit In 0.45 % NaCl 1 250ml.bag @ 18 UNITS/KG/HR 22.045 mls/hr IV .[id number] [facility] Rx#: [id number] Oral 240 Output: Urine 500 Other: Voiding Method Toilet # Voids 2 Weight 122.47 kg 02/27/22 07:19 02/26/22 22:14
[2022-02-27 11:18] LABS: Calcium 8.1 mg/dL (8.4-10.2); Magnesium 2.4 mg/dL (1.6-2.3)
--- NOTE | 2022-02-27 11:35 | US ---
EXAMINATION TYPE: US venous doppler duplex LE BI DATE OF EXAM: 02/27/2022 10:45 AM COMPARISON: NONE CLINICAL HISTORY: rule out DVT. dvt limited exam due to body habitus. SIDE PERFORMED: Bilateral TECHNIQUE: The lower extremity deep venous system is examined utilizing real time linear array sonog kirit with graded compression, doppler sonography and color-flow sonography. VESSELS IMAGED: Common Femoral Vein Deep Femoral Vein Greater Saphenous Vein * Femoral Vein Popliteal Vein Grayscale, color doppler, spectral doppler imaging performed of the deep veins of the lower extremiti es. There is normal flow, compressibility, vascular waveforms. Right Leg: Negative for DVT Left Leg: Negative for DVT Subcutaneous edema bilaterally. IMPRESSION: No deep venous thrombosis of both visualized lower extremities.
[2022-02-27 12:24] LABS: Glucose,Whole Blood 333 mg/dL (70-110)
--- NOTE | 2022-02-27 12:35 | P.PN ---
Subjective Progress Note Date: 02/27/22 Principal diagnosis: SOB Hospital course: 61-year-old female with past medical history of diabetes, hypertension, COPD/asthma, dyslipidemia presented with progressive dyspnea on exertion, nonproductive cough. Family member tested positive for COVID after patient was admitted. Patient being treated for sepsis, acute hypoxic respiratory failure, new onset A. fib with RVR. Subjective: Patient seen and examined at bedside. She claims that her shortness of breath has remarkably improved. She still continues to have nonproductive cough. She denies any current chest pain, palpitations, nausea, vomiting, abdominal pain, diarrhea, or urinary problems. Pertinent positives and negatives as discussed above, a complete review of systems was performed and all other systems are negative. General: nontoxic, no distress, appears at stated age, morbidly obese Derm: warm, dry Head: atraumatic, normocephalic, symmetric Eyes: EOMI, no lid lag, anicteric sclera Mouth: no lip lesion, mucus membranes moist Cardiovascular: S1S2 reg, no murmur, positive posterior tibial pulse bilateral, Lungs: Bilateral rales right greater than left, no accessory muscle use, on 2 L nasal cannula Abdominal: soft, nontender to palpation, no guarding, no appreciable organomegaly Ext: no gross muscle atrophy, no edema, no contractures Neuro: CN II-XI grossly intact, no focal neuro deficits Psych: Alert, oriented, appropriate affect Assessment and plan: Acute hypoxic respiratory failure Sepsis likely secondary to community-acquired pneumonia Possible PE, however travel history over 2 weeks ago -Continue ceftriaxone and azithromycin -Continue wean oxygen -D-dimer elevated, but the patient already on anticoagulation -D-dimer could also be elevated in the setting of acute infection New onset A. fib with RVR Type 2 NSTEMI Possible -On heparin drip -Troponin downtrending -Echo pending -Cardiology consult - recommending switching to eliquis after heparin gtt -Lower extremity Dopplers -On beta wisam Hyponatremia, dehydration DC, prerenal ATN -Encourage oral intake Diabetes with hyperglycemia -Sliding-scale insulin Morbid obesity -Consider bariatric surgery as outpatient Hypertension -Amlodipine -Starting lisinopril 5 hyperlipidemia, COPD/asthma -Continue home meds DVT prophylaxis: On heparin drip Full code Disposition: Pending clinical course Objective - Vital Signs Vital signs: Vital Signs Temp 98.1 F 02/27/22 07:20 Pulse 100 02/27/22 08:47 Resp 16 02/27/22 07:20 BP 116/63 02/27/22 07:20 Pulse Ox 93 L 02/27/22 07:20 FiO2 Intake & Output 02/26/22 02/27/22 02/27/22 18:59 06:59 18:59 Intake Total 240 178.524 Output Total 500 Balance 240 -321.476 Weight 122.47 kg 122.47 kg Intake: Intake, IV Titration 178.524 Amount Heparin Sod,Pork in 0.45% 178.524 NaCl 25,000 unit In 0.45 % NaCl 1 250ml.bag @ 18 UNITS/KG/HR 22.045 mls/hr IV .[id number] [facility] Rx#: [id number] Oral 240 Output: Urine 500 Other: Voiding Method Toilet # Voids 2 - Labs CBC & Chem 7: 02/27/22 07:19 02/27/22 07:19 Labs: Abnormal Lab Results - Last 24 Hours (Table) 02/26/22 02/26/22 02/26/22 Range/Units 15:25 15:25 17:18 WBC 12.5 H (3.8-10.6) k/uL RBC (3.80-5.40) m/uL Hgb (11.4-16.0) gm/dL Hct (34.0-46.0) % Neutrophils # 10.6 H (1.3-7.7) k/uL APTT (22.0-30.0) sec D-Dimer (<0.60) mg/L FEU Sodium 128 L (137-145) mmol/L Chloride 90 L (98-107) mmol/L BUN 84 H (7-17) mg/dL Creatinine 1.71 H (0.52-1.04) mg/dL Glucose 289 H (74-99) mg/dL POC Glucose (mg/dL) (70-110) mg/dL AST 46 H (14-36) U/L Troponin I 0.047 H* (0.000-0.034) ng/mL Albumin 3.4 L (3.5-5.0) g/dL Urine Appearance (Clear) Urine Protein (Negative) Urine Glucose (UA) (Negative) Urine Blood (Negative) Ur Leukocyte Esterase (Negative) Ur Squamous Epith Cells (0-4) /hpf Amorphous Sediment (None) /hpf Urine Bacteria (None) /hpf Hyaline Casts (0-2) /lpf Urine Mucus (None) /hpf 02/26/22 02/26/22 02/26/22 Range/Units 22:00 22:14 22:14 WBC (3.8-10.6) k/uL RBC (3.80-5.40) m/uL Hgb (11.4-16.0) gm/dL Hct (34.0-46.0) % Neutrophils # (1.3-7.7) k/uL APTT (22.0-30.0) sec D-Dimer 4.55 H (<0.60) mg/L FEU Sodium 129 L (137-145) mmol/L Chloride (98-107) mmol/L BUN (7-17) mg/dL Creatinine (0.52-1.04) mg/dL Glucose (74-99) mg/dL POC Glucose (mg/dL) 345 H (70-110) mg/dL AST (14-36) U/L Troponin I (0.000-0.034) ng/mL Albumin (3.5-5.0) g/dL Urine Appearance (Clear) Urine Protein (Negative) Urine Glucose (UA) (Negative) Urine Blood (Negative) Ur Leukocyte Esterase (Negative) Ur Squamous Epith Cells (0-4) /hpf Amorphous Sediment (None) /hpf Urine Bacteria (None) /hpf Hyaline Casts (0-2) /lpf Urine Mucus (None) /hpf 02/27/22 02/27/22 02/27/22 Range/Units 01:17 06:07 07:19 WBC 12.3 H (3.8-10.6) k/uL RBC 3.60 L (3.80-5.40) m/uL Hgb 10.4 L (11.4-16.0) gm/dL Hct 32.1 L (34.0-46.0) % Neutrophils # 10.8 H (1.3-7.7) k/uL APTT 46.7 H (22.0-30.0) sec D-Dimer (<0.60) mg/L FEU Sodium (137-145) mmol/L Chloride (98-107) mmol/L BUN (7-17) mg/dL Creatinine (0.52-1.04) mg/dL Glucose (74-99) mg/dL POC Glucose (mg/dL) 345 H (70-110) mg/dL AST (14-36) U/L Troponin I (0.000-0.034) ng/mL Albumin (3.5-5.0) g/dL Urine Appearance (Clear) Urine Protein (Negative) Urine Glucose (UA) (Negative) Urine Blood (Negative) Ur Leukocyte Esterase (Negative) Ur Squamous Epith Cells (0-4) /hpf Amorphous Sediment (None) /hpf Urine Bacteria (None) /hpf Hyaline Casts (0-2) /lpf Urine Mucus (None) /hpf 02/27/22 02/27/22 Range/Units 07:19 08:30 WBC (3.8-10.6) k/uL RBC (3.80-5.40) m/uL Hgb (11.4-16.0) gm/dL Hct (34.0-46.0) % Neutrophils # (1.3-7.7) k/uL APTT 85.2 H (22.0-30.0) sec D-Dimer (<0.60) mg/L FEU Sodium (137-145) mmol/L Chloride (98-107) mmol/L BUN (7-17) mg/dL Creatinine (0.52-1.04) mg/dL Glucose (74-99) mg/dL POC Glucose (mg/dL) (70-110) mg/dL AST (14-36) U/L Troponin I (0.000-0.034) ng/mL Albumin (3.5-5.0) g/dL Urine Appearance Cloudy H (Clear) Urine Protein Trace H (Negative) Urine Glucose (UA) 2+ H (Negative) Urine Blood Small H (Negative) Ur Leukocyte Esterase Small H (Negative) Ur Squamous Epith Cells 6 H (0-4) /hpf Amorphous Sediment Occasional H (None) /hpf Urine Bacteria Moderate H (None) /hpf Hyaline Casts 48 H (0-2) /lpf Urine Mucus Rare H (None) /hpf
[2022-02-27] MEDS ORDERED: lisinopriL 5 MG TAB PO SCH (12:45)
[2022-02-27 17:02] LABS: Glucose,Whole Blood 334 mg/dL (70-110)
[2022-02-27 19:55] LABS: Glucose,Whole Blood 315 mg/dL (70-110)
[2022-02-27] MEDS: ASPIRIN 81 MG PO SCH (20:10)
[2022-02-27] MEDS: ATORVASTATIN 40 MG TAB PO SCH (20:10)
[2022-02-27] MEDS: SERTRALINE 100 MG TAB PO SCH (20:10)
[2022-02-28 06:11] LABS: Glucose,Whole Blood 186 mg/dL (70-110)
[2022-02-28] MEDS: INSULIN ASPART (NovoLOG) 100 UNIT/ML VIAL SQ SCH ×4 (06:19→19:59)
[2022-02-28] MEDS: SYMBICORT 160-4.5 MCG INHALER INHALATION SCH ×2 (07:39→20:21)
--- NOTE | 2022-02-28 08:21 | XR ---
EXAMINATION TYPE: XR chest 2V DATE OF EXAM: 02/28/2022 8:14 AM COMPARISON: Chest radiographs from 02/26/2022. TECHNIQUE: XR chest 2V Frontal and lateral views of the chest. CLINICAL INDICATION:Female, 61 years old with history of hypoxia; FINDINGS: Lungs/Pleura: No pneumothorax or pleural effusions. Similar multifocal patchy airspace opacities thro ughout the right lung. Pulmonary vascularity: Unremarkable. Heart/mediastinum: Cardiomediastinal silhouette is prominent in size. Atherosclerotic calcifications are seen in the aorta. Musculoskeletal: No acute osseous pathology. Cervical fusion hardware partially visualized. IMPRESSION: Similar multifocal airspace opacities throughout the right lung concerning for pneumonia. Continued f ollow-up is recommended.
[2022-02-28] MEDS: METOPROLOL TARTRATE 50 MG TAB PO SCH ×3 (08:51→19:58)
--- NOTE | 2022-02-28 10:02 | P.PN ---
Subjective Progress Note Date: 02/28/22 Principal diagnosis: SOB Hospital course: 61-year-old female with past medical history of diabetes, hypertension, COPD/asthma, dyslipidemia presented with progressive dyspnea on exertion, nonproductive cough. Family member tested positive for COVID after patient was admitted. Patient being treated for sepsis, acute hypoxic respiratory failure, new onset A. fib with RVR. Subjective: Patient seen and examined at bedside. She claims that her shortness of breath has remarkably improved. She still continues to have nonproductive cough. She denies any current chest pain, palpitations, nausea, vomiting, abdominal pain, diarrhea, or urinary problems. Pertinent positives and negatives as discussed above, a complete review of systems was performed and all other systems are negative. General: nontoxic, no distress, appears at stated age, morbidly obese Derm: warm, dry Head: atraumatic, normocephalic, symmetric Eyes: EOMI, no lid lag, anicteric sclera Mouth: no lip lesion, mucus membranes moist Cardiovascular: S1S2 , no murmur, tachycardic and irregular Lungs: Bilateral rales right greater than left, no accessory muscle use, on 2 L nasal cannula Abdominal: soft, nontender to palpation, no guarding, no appreciable organomegaly Ext: no gross muscle atrophy, no edema, no contractures Neuro: CN II-XI grossly intact, no focal neuro deficits Psych: Alert, oriented, appropriate affect Assessment and plan: Acute hypoxic respiratory failure Sepsis likely secondary to community-acquired pneumonia Possible PE, however travel history over 2 weeks ago -Continue ceftriaxone and azithromycin -Continue wean oxygen -D-dimer elevated, but the patient already on anticoagulation -D-dimer could also be elevated in the setting of acute infection New onset A. fib with RVR Type 2 NSTEMI Possible PE -Troponin downtrending -Echo pending -Cardiology consult - recommending switching to eliquis after heparin gtt -Lower extremity Dopplers -On beta wisam - increased metoprolol 100 TID -Discontinued heparin drip, now on eliquis Hyponatremia, dehydration -Improved with IV fluids initially DC, prerenal ATN -Encourage oral intake Diabetes with hyperglycemia -Sliding-scale insulin Morbid obesity -Consider bariatric surgery as outpatient Hypertension -Holding antihypertensives given low blood pressure hyperlipidemia, COPD/asthma -Continue home meds DVT prophylaxis: eliquis Full code Disposition: Pending clinical course, likely can be discharged tomorrow if she is weaned off of oxygen and rate controlled Objective - Vital Signs Vital signs: Vital Signs Temp 97.6 F 02/28/22 08:50 Pulse 135 H 02/28/22 08:50 Resp 16 02/28/22 08:50 BP 104/65 02/28/22 08:50 Pulse Ox 91 L 02/28/22 08:50 FiO2 Intake & Output 02/27/22 02/28/22 02/28/22 18:59 06:59 18:59 Intake Total 309.811 595.917 216.384 Output Total 500 Balance -190.189 595.917 216.384 Intake: Intake, IV Titration 309.811 110.917 98.384 Amount Heparin Sod,Pork in 0.45% 309.811 110.917 98.384 NaCl 25,000 unit In 0.45 % NaCl 1 250ml.bag @ 18 UNITS/KG/HR 22.045 mls/hr IV .[id number] [facility] Rx#: [id number] Oral 485 118 Output: Urine 500 Other: Voiding Method Toilet Toilet # Voids 2 1 # Bowel Movements 1 - Labs CBC & Chem 7: 02/27/22 07:19 02/27/22 07:19 Labs: Abnormal Lab Results - Last 24 Hours (Table) 02/26/22 02/27/22 02/27/22 Range/Units 22:14 07:19 12:22 APTT (22.0-30.0) sec Sodium 130 L (137-145) mmol/L Carbon Dioxide 20 L (22-30) mmol/L BUN 87 H (7-17) mg/dL Creatinine 1.41 H (0.52-1.04) mg/dL Glucose 334 H (74-99) mg/dL POC Glucose (mg/dL) 333 H (70-110) mg/dL Hemoglobin A1c 8.3 H (0.0-6.0) % Calcium 8.1 L (8.4-10.2) mg/dL Magnesium 2.4 H (1.6-2.3) mg/dL 02/27/22 02/27/22 02/27/22 Range/Units 14:52 16:48 19:54 APTT 187.4 H* (22.0-30.0) sec Sodium (137-145) mmol/L Carbon Dioxide (22-30) mmol/L BUN (7-17) mg/dL Creatinine (0.52-1.04) mg/dL Glucose (74-99) mg/dL POC Glucose (mg/dL) 334 H 315 H (70-110) mg/dL Hemoglobin A1c (0.0-6.0) % Calcium (8.4-10.2) mg/dL Magnesium (1.6-2.3) mg/dL 02/27/22 02/28/22 02/28/22 Range/Units 22:38 06:09 07:14 APTT 116.8 H* 70.8 H (22.0-30.0) sec Sodium (137-145) mmol/L Carbon Dioxide (22-30) mmol/L BUN (7-17) mg/dL Creatinine (0.52-1.04) mg/dL Glucose (74-99) mg/dL POC Glucose (mg/dL) 186 H (70-110) mg/dL Hemoglobin A1c (0.0-6.0) % Calcium (8.4-10.2) mg/dL Magnesium (1.6-2.3) mg/dL Microbiology - Last 24 Hours (Table) 02/26/22 15:25 Blood Culture - Preliminary Blood No Growth after 24 hours
--- NOTE | 2022-02-28 10:15 | P.PN ---
Subjective Progress Note Date: 02/28/22 The patient was interviewed and examined lying comfortably in bed. The patient recently was taken off of her oxygen. She states she is breathing better over the last 24 hours. GENERAL: Well-appearing, well-nourished obese female, in no acute distress. NECK: Supple without JVD or thyromegaly. LUNGS: Breath sounds diminished to auscultation bilaterally. Respiration equal and unlabored. HEART: Irregular rate and rhythm without murmurs, rubs or gallops. S1 and S2 heard. EXTREMITIES: Normal range of motion, no edema. No clubbing or cyanosis. Peripheral pulses intact and strong. VITALS: Blood pressure 104/65, pulse 135, respiratory rate 16, SpO2 91% on room air TELEMETRY: A. fib with RVR LABS: WBC 12.3, hemoglobin 10.4, hematocrit 32.1, platelet 250, sodium 130, potassium 4.0, BUN 87, creatinine 1.1 IMPRESSION: New-onset of atrial fibrillation with RVR. Discussed community-acquired pneumonia Hyponatremia Acute kidney injury Diabetes mellitus PLAN: Discontinue heparin and start novel anticoagulation Continue beta blockers for rate control Continue supportive treatment for pneumonia Further recommendations based on clinical course I am dictating on behalf of Dr Sandro Foster's history/physical and assessment/plan. Objective - Vital Signs Vital signs: Vital Signs Temp 97.6 F 02/28/22 08:50 Pulse 135 H 02/28/22 08:50 Resp 16 02/28/22 08:50 BP 104/65 02/28/22 08:50 Pulse Ox 91 L 02/28/22 08:50 FiO2 Intake & Output 02/27/22 02/28/22 02/28/22 18:59 06:59 18:59 Intake Total 309.811 595.917 216.384 Output Total 500 Balance -190.189 595.917 216.384 Intake: Intake, IV Titration 309.811 110.917 98.384 Amount Heparin Sod,Pork in 0.45% 309.811 110.917 98.384 NaCl 25,000 unit In 0.45 % NaCl 1 250ml.bag @ 18 UNITS/KG/HR 22.045 mls/hr IV .[id number] [facility] Rx#: [id number] Oral 485 118 Output: Urine 500 Other: Voiding Method Toilet Toilet # Voids 2 1 # Bowel Movements 1 - Labs CBC & Chem 7: 02/27/22 07:19 02/27/22 07:19 Labs: Abnormal Lab Results - Last 24 Hours (Table) 02/26/22 02/27/22 02/27/22 Range/Units 22:14 07:19 12:22 APTT (22.0-30.0) sec Sodium 130 L (137-145) mmol/L Carbon Dioxide 20 L (22-30) mmol/L BUN 87 H (7-17) mg/dL Creatinine 1.41 H (0.52-1.04) mg/dL Glucose 334 H (74-99) mg/dL POC Glucose (mg/dL) 333 H (70-110) mg/dL Hemoglobin A1c 8.3 H (0.0-6.0) % Calcium 8.1 L (8.4-10.2) mg/dL Magnesium 2.4 H (1.6-2.3) mg/dL 02/27/22 02/27/22 02/27/22 Range/Units 14:52 16:48 19:54 APTT 187.4 H* (22.0-30.0) sec Sodium (137-145) mmol/L Carbon Dioxide (22-30) mmol/L BUN (7-17) mg/dL Creatinine (0.52-1.04) mg/dL Glucose (74-99) mg/dL POC Glucose (mg/dL) 334 H 315 H (70-110) mg/dL Hemoglobin A1c (0.0-6.0) % Calcium (8.4-10.2) mg/dL Magnesium (1.6-2.3) mg/dL 02/27/22 02/28/22 02/28/22 Range/Units 22:38 06:09 07:14 APTT 116.8 H* 70.8 H (22.0-30.0) sec Sodium (137-145) mmol/L Carbon Dioxide (22-30) mmol/L BUN (7-17) mg/dL Creatinine (0.52-1.04) mg/dL Glucose (74-99) mg/dL POC Glucose (mg/dL) 186 H (70-110) mg/dL Hemoglobin A1c (0.0-6.0) % Calcium (8.4-10.2) mg/dL Magnesium (1.6-2.3) mg/dL Microbiology - Last 24 Hours (Table) 02/26/22 15:25 Blood Culture - Preliminary Blood No Growth after 24 hours
[2022-02-28] MEDS: AZITHROMYCIN 500 MG in SODIUM CHLORIDE 0.9% 250 ML IVPB SCH (10:25)
[2022-02-28] MEDS: APIXABAN 5 MG TAB PO SCH ×2 (10:29→19:58)
[2022-02-28 11:45] LABS: Glucose,Whole Blood 314 mg/dL (70-110)
[2022-02-28] MEDS ORDERED: METOPROLOL TARTRATE 50 MG TAB PO SCH (13:00)
[2022-02-28] MEDS: IPRATROPIUM-ALBUTEROL 3 ML NEB INHALATION PRN (15:02)
[2022-02-28 16:34] LABS: Glucose,Whole Blood 159 mg/dL (70-110)
[2022-02-28 19:39] LABS: Glucose,Whole Blood 166 mg/dL (70-110)
[2022-02-28] MEDS: SERTRALINE 100 MG TAB PO SCH (19:58)
[2022-02-28] MEDS: ASPIRIN 81 MG PO SCH (19:58)
[2022-02-28] MEDS: ATORVASTATIN 40 MG TAB PO SCH (19:58)
[2022-02-28] MEDS ORDERED: APIXABAN 5 MG TAB PO SCH (21:00)
[2022-03-01 06:20] LABS: Glucose,Whole Blood 142 mg/dL (70-110)
[2022-03-01] MEDS: INSULIN ASPART (NovoLOG) 100 UNIT/ML VIAL SQ SCH ×4 (06:36→21:03)
[2022-03-01] MEDS: METOPROLOL TARTRATE 50 MG TAB PO SCH ×3 (08:34→21:02)
[2022-03-01] MEDS: APIXABAN 5 MG TAB PO SCH ×2 (08:34→21:02)
[2022-03-01] MEDS: SYMBICORT 160-4.5 MCG INHALER INHALATION SCH ×2 (08:49→19:35)
[2022-03-01 09:14] LABS: Albumin 2.9 g/dL (3.5-5.0); Total Bilirubin 0.4 mg/dL (0.2-1.3); Total Protein 5.8 g/dL (6.3-8.2)
[2022-03-01 09:15] LABS: HGB 10.6 gm/dL (11.4-16.0); Hypochromasia Slight; MCH 28.4 pg (25.0-35.0); MCHC 32.2 g/dL (31.0-37.0); MCV 88.1 fL (80.0-100.0); Mean Platelet Volume 9.1; Platelet Count 329 k/uL (150-450); RBC 3.74 m/uL (3.80-5.40); RDW 14.6 % (11.5-15.5); WBC 11.8 k/uL (3.8-10.6)
[2022-03-01 09:38] LABS: Calcium 8.9 mg/dL (8.4-10.2); Magnesium 2.3 mg/dL (1.6-2.3); Potassium 4.1 mmol/L (3.5-5.1)
--- NOTE | 2022-03-01 10:01 | CA ---
Transthoracic Echo Report Name: Lucie Tejada Age: 61 Gender: F : 1960 Exam Date: 03/01/2022 09:03 Exam Location: [facility] Ht (in): 61 Wt (lb): 280 Ordering Physician: Neno Weathers DO Attending/Referring Phys: [id number], Sarahy [employer] Operator [employer]ender Sorto, Madeline, RVS Procedure CPT: Indications: sob Cardiac Hx: Technical Quality: Fair Contrast 1: Total Dose (mL): Contrast 2: Total Dose (mL): MEASUREMENTS (Male / Female) Normal Values 2D ECHO LV Diastolic Diameter PLAX 4.3 cm 4.2 - 5.9 / 3.9 - 5.3 cm LV Systolic Diameter PLAX 2.8 cm IVS Diastolic Thickness 1.1 cm 0.6 - 1.0 / 0.6 - 0.9 cm LVPW Diastolic Thickness 1.2 cm 0.6 - 1.0 / 0.6 - 0.9 cm LV Relative Wall Thickness 0.5 RV Internal Dim ED PLAX 2.8 cm LA Systolic Diameter LX 3.7 cm 3.0 - 4.0 / 2.7 - 3.8 cm LA Volume 43.0 cm??? 18 - 58 / 22 - 52 cm??? M-MODE Aortic Root Diameter MM 2.7 cm MV E Point Septal Separation 1.1 cm AV Cusp Separation MM 1.3 cm DOPPLER AV Peak Velocity 194.9 cm/s AV Peak Gradient 15.2 mmHg AV Mean Velocity 155.1 cm/s AV Mean Gradient 11.1 mmHg AV Velocity Time Integral 40.0 cm MV Area PHT 4.7 cm??? MV Deceleration Time 169.2 ms TR Peak Velocity 306.1 cm/s TR Peak Gradient 37.5 mmHg Right Ventricular Systolic Press 42.5 mmHg FINDINGS Left Ventricle Left ventricular ejection fraction is estimated at 60-65 %. Left ventricular cavity size normal. Borderline left ventricular hypertrophy. Right Ventricle Severe right ventricular dilatation. Mild pulmonary hypertension. Right Atrium Normal right atrial size. Left Atrium Normal left atrial size. Mitral Valve Mitral annular calcification. Aortic Valve Mild aortic stenosis with a peak gradient of 15 mmHg and a mean gradient of 11 mmHg. Tricuspid Valve Mild tricuspid regurgitation. Pulmonic Valve Pulmonic valve not well visualized. Pericardium Normal pericardium. No pericardial effusion. Aorta Normal size aortic root and proximal ascending aorta. CONCLUSIONS Normal LV size and systolic function. Mild aortic sclerosis and no significant stenosis. Mild mitral and tricuspid insufficiency. No pericardial effusion. Technically somewhat difficult study Previewed by: Dr. Murray Alfredo MD (Electronically Signed) Final Date: 01 March 2022 10:00
[2022-03-01] MEDS: AZITHROMYCIN 500 MG in SODIUM CHLORIDE 0.9% 250 ML IVPB SCH (10:15)
[2022-03-01 10:18] LABS: Band Neutrophils % 1 %; Eosinophils # (M) 0.12 k/uL (0-0.7); Lymphocytes # (M) 1.42 k/uL (1.0-4.8); Metamyelocytes # (M) 0.24 k/uL (0); Metamyelocytes % 2 %; Monocytes # (M) 0.47 k/uL (0-1.0); Myelocytes # (M) 0.24 k/uL (0); Myelocytes % 2 %; Neutrophils % (M) 80 %; Nucleated Red Blood Cells 0 /100 WBC (0-0); Total Cells Counted 200
--- NOTE | 2022-03-01 10:24 | P.PN ---
Subjective Progress Note Date: 03/01/22 Hospital course: Patient is a Physical exam: Vital signs reviewed and stable. General: Nontoxic, no distress and appears stated age. Derm: Skin warm and dry, normal coloration for ethnicity. Head: Atraumatic, normocephalic and symmetric. Eyes: EOMs intact, no lid lag, and anicteric sclera Mouth: no lip lesions, mucus membranes moist Cardiovascular: regular rate and rhythm with normal S1S2, no murmur, positive posterior tibial pulses bilaterally, and cap refill < 2 seconds. Lungs: Respirations even, regular, and unlabored on room air. Lungs CTA bilaterally, no rhonchi, no rales, no wheezing, and no accessory muscle usage. Abdominal: soft, nontender to palpation, no guarding, no appreciable organomegaly Ext: ROM intact. No gross muscle atrophy, no edema, no contractures Neuro: Speech clear, face symmetrical and CN II-XII grossly intact with no noted focal neuro deficits Psych: Alert and oriented to person, place, time, and situation. Appropriate and pleasant affect. Assessment and Plan of Care: CODE STATUS:[] DVT prophylaxis: [] Discussed with: [] Anticipated discharge date: [] Anticipated discharge place: [] A total of [] minutes was spent on the care of this complex patient more than 50% of the time was spent in counseling and care coordination. Objective - Vital Signs Vital signs: Vital Signs Temp 97.9 F 03/01/22 08:29 Pulse 105 H 03/01/22 08:29 Resp 16 03/01/22 08:29 BP 121/68 03/01/22 08:29 Pulse Ox 98 03/01/22 08:52 FiO2 Intake & Output 02/28/22 03/01/22 03/01/22 18:59 06:59 18:59 Intake Total 452.384 970 120 Balance 452.384 970 120 Weight 127.1 kg Intake: Intake, IV Titration 98.384 Amount Heparin Sod,Pork in 0.45% 98.384 NaCl 25,000 unit In 0.45 % NaCl 1 250ml.bag @ 18 UNITS/KG/HR 22.045 mls/hr IV .[id number] GRACIE Rx#: [id number] Oral 354 970 120 Other: Voiding Method Toilet Toilet Toilet # Voids 1 1 - Labs CBC & Chem 7: 03/01/22 08:18 03/01/22 08:18 Labs: Abnormal Lab Results - Last 24 Hours (Table) 02/28/22 02/28/22 02/28/22 Range/Units 11:43 16:32 19:37 WBC (3.8-10.6) k/uL RBC (3.80-5.40) m/uL Hgb (11.4-16.0) gm/dL Hct (34.0-46.0) % Neutrophils # (Manual) (1.3-7.7) k/uL Metamyelocytes # (Man) (0) k/uL Myelocytes # (Manual) (0) k/uL BUN (7-17) mg/dL Creatinine (0.52-1.04) mg/dL Glucose (74-99) mg/dL POC Glucose (mg/dL) 314 H 159 H 166 H (70-110) mg/dL Total Protein (6.3-8.2) g/dL Albumin (3.5-5.0) g/dL 03/01/22 03/01/22 03/01/22 Range/Units 06:16 08:18 08:18 WBC 11.8 H (3.8-10.6) k/uL RBC 3.74 L (3.80-5.40) m/uL Hgb 10.6 L (11.4-16.0) gm/dL Hct 33.0 L (34.0-46.0) % Neutrophils # (Manual) 9.50 H (1.3-7.7) k/uL Metamyelocytes # (Man) 0.24 H (0) k/uL Myelocytes # (Manual) 0.24 H (0) k/uL BUN 66 H (7-17) mg/dL Creatinine 1.14 H (0.52-1.04) mg/dL Glucose 156 H (74-99) mg/dL POC Glucose (mg/dL) 142 H (70-110) mg/dL Total Protein 5.8 L (6.3-8.2) g/dL Albumin 2.9 L (3.5-5.0) g/dL Microbiology - Last 24 Hours (Table) 02/26/22 15:25 Blood Culture - Preliminary Blood No Growth after 48 hours
--- NOTE | 2022-03-01 11:28 | CT ---
CT CHEST FOR PULMONARY EMBOLISM. EXAMINATION TYPE: CT chest angio for PE DATE OF EXAM: 03/01/2022 INDICATION: Elevated d-dimer, hypoxia, a-fib CT DLP: 788.6 mGycm, Automated exposure control for dose reduction was used. CONTRAST: Patient injected with 80 mL of Isovue 370. COMPARISON: None TECHNIQUE: CT of the chest is performed on a spiral scan at 2 mm thick sections. Study is performed with intravenous contrast timed for evaluation for pulmonary embolism. This will limit additional po rtions of the evaluation. 3-D MIP images reconstructed by the technologist are reviewed on the compu ter in the coronal and sagittal planes. FINDINGS: No persistent filling defects are evident to suggest an acute pulmonary embolism. No mediastinal or hilar adenopathy enlarged by CT criteria is evident. The ascending aorta diameter at the level of the main pulmonary artery is 3.1 cm. The main pulmonary artery diameter at the bifur cation is 2.7 cm. There is a small right pleural effusion. Some adjacent compressive atelectasis appears to be present. Some consolidation may be present at the right apex. Correlate for pneumonia. Mild streak opacities at the left base may be on the basis of atelectasis. Limited CT section through the upper abdomen are unremarkable. IMPRESSIONS: 1. No acute pulmonary embolism. 2. Small right pleural effusion. 3. Right upper lobe consolidation with scattered infiltrates bilaterally. Correlate for pneumonia. So me underlying atelectasis may be present.
[2022-03-01 11:54] LABS: Glucose,Whole Blood 207 mg/dL (70-110)
--- NOTE | 2022-03-01 12:04 | P.PN ---
Subjective Progress Note Date: 03/01/22 HISTORY OF PRESENT ILLNESS: This is a 61-year-old female who follows in the office with Dr. Abernathy. Patient is admitted to the hospital secondary to pneumonia. Patient was also found to be in A. fib with RVR. She denies a history of atrial fibrillation. This morning, the patient remains in atrial fibrillation with a heart rate around 110. She denies chest pain or pressure. She denies shortness of breath. Vital signs are stable. Chest CTA completed which was negative for PE. Echocardiogram completed revealing ejection fraction 60-65%, mild aortic stenosis, mild tricuspid regurgitation, mild pulmonary hypertension, and severe right ventricular dilatation. PHYSICAL EXAM: VITAL SIGNS: Reviewed. GENERAL: Well-developed in no acute distress. NECK: Supple. No JVD or thyromegaly LUNGS: Respirations even and unlabored. Lungs essentially clear to auscultation bilaterally. HEART: Tachycardic. Irregular rate and rhythm. S1 and S2 heard. EXTREMITIES: Normal range of motion. No clubbing or cyanosis. Peripheral pulses intact. No lower extremity edema ASSESSMENT: Community acquired pneumonia New onset persistent atrial fibrillation with RVR Acute kidney injury Diabetes Hyponatremia PLAN: Continue anticoagulation with Eliquis Continue metoprolol tartrate 100 mg TID Add amiodarone 400 mg twice a day Continue telemetry monitoring Check TSH Further recommendations pending patient's course Nurse practitioner note has been reviewed by physician. Signing provider agrees with the documented findings, assessment, and plan of care. Objective - Vital Signs Vital signs: Vital Signs Temp 97.9 F 03/01/22 08:29 Pulse 107 H 03/01/22 11:09 Resp 20 03/01/22 11:09 BP 116/78 03/01/22 11:09 Pulse Ox 91 L 03/01/22 11:09 FiO2 Intake & Output 02/28/22 03/01/22 03/01/22 18:59 06:59 18:59 Intake Total 452.384 970 120 Balance 452.384 970 120 Weight 127.1 kg Intake: Intake, IV Titration 98.384 Amount Heparin Sod,Pork in 0.45% 98.384 NaCl 25,000 unit In 0.45 % NaCl 1 250ml.bag @ 18 UNITS/KG/HR 22.045 mls/hr IV .[id number] GRACIE Rx#: [id number] Oral 354 970 120 Other: Voiding Method Toilet Toilet Toilet # Voids 1 1 - Labs CBC & Chem 7: 03/01/22 08:18 03/01/22 08:18 Labs: Abnormal Lab Results - Last 24 Hours (Table) 02/28/22 02/28/22 02/28/22 Range/Units 11:43 16:32 19:37 WBC (3.8-10.6) k/uL RBC (3.80-5.40) m/uL Hgb (11.4-16.0) gm/dL Hct (34.0-46.0) % Neutrophils # (Manual) (1.3-7.7) k/uL Metamyelocytes # (Man) (0) k/uL Myelocytes # (Manual) (0) k/uL BUN (7-17) mg/dL Creatinine (0.52-1.04) mg/dL Glucose (74-99) mg/dL POC Glucose (mg/dL) 314 H 159 H 166 H (70-110) mg/dL Total Protein (6.3-8.2) g/dL Albumin (3.5-5.0) g/dL 03/01/22 03/01/22 03/01/22 Range/Units 06:16 08:18 08:18 WBC 11.8 H (3.8-10.6) k/uL RBC 3.74 L (3.80-5.40) m/uL Hgb 10.6 L (11.4-16.0) gm/dL Hct 33.0 L (34.0-46.0) % Neutrophils # (Manual) 9.50 H (1.3-7.7) k/uL Metamyelocytes # (Man) 0.24 H (0) k/uL Myelocytes # (Manual) 0.24 H (0) k/uL BUN 66 H (7-17) mg/dL Creatinine 1.14 H (0.52-1.04) mg/dL Glucose 156 H (74-99) mg/dL POC Glucose (mg/dL) 142 H (70-110) mg/dL Total Protein 5.8 L (6.3-8.2) g/dL Albumin 2.9 L (3.5-5.0) g/dL Microbiology - Last 24 Hours (Table) 02/26/22 15:25 Blood Culture - Preliminary Blood No Growth after 48 hours
[2022-03-01] MEDS: AMIODARONE 200 MG TAB PO SCH ×2 (12:06→21:02)
[2022-03-01] MEDS: IPRATROPIUM-ALBUTEROL 3 ML NEB INHALATION PRN (12:42)
[2022-03-01 19:09] LABS: Glucose,Whole Blood 221 mg/dL (70-110)
[2022-03-01 20:23] LABS: Glucose,Whole Blood 192 mg/dL (70-110)
[2022-03-01] MEDS: ATORVASTATIN 40 MG TAB PO SCH (21:02)
[2022-03-01] MEDS: ASPIRIN 81 MG PO SCH (21:03)
[2022-03-01] MEDS: SERTRALINE 100 MG TAB PO SCH (21:03)
[2022-03-02 05:58] LABS: Glucose,Whole Blood 159 mg/dL (70-110)
[2022-03-02] MEDS: INSULIN ASPART (NovoLOG) 100 UNIT/ML VIAL SQ SCH ×2 (06:19→12:14)
[2022-03-02] MEDS: APIXABAN 5 MG TAB PO SCH (08:13)
[2022-03-02] MEDS: AMIODARONE 200 MG TAB PO SCH (08:13)
[2022-03-02] MEDS: METOPROLOL TARTRATE 50 MG TAB PO SCH (08:14)
[2022-03-02] MEDS: SYMBICORT 160-4.5 MCG INHALER INHALATION SCH (09:05)
[2022-03-02 09:32] LABS: Basophils # (A) 0.1 k/uL (0-0.2); Basophils % (A) 1 %; Eosinophils # (A) 0.1 k/uL (0-0.7); Eosinophils % (A) 1 %; HCT 32.9 % (34.0-46.0); HGB 10.3 gm/dL (11.4-16.0); Hypochromasia Slight; Lymphocytes # (A) 1.5 k/uL (1.0-4.8); Lymphocytes % (A) 11 %; MCH 27.7 pg (25.0-35.0); MCHC 31.2 g/dL (31.0-37.0); MCV 88.6 fL (80.0-100.0); Mean Platelet Volume 8.6; Monocytes % (A) 7 %; Neutrophils # (A) 10.3 k/uL (1.3-7.7); Neutrophils % (A) 78 %; Platelet Count 318 k/uL (150-450); RBC 3.71 m/uL (3.80-5.40); RDW 14.5 % (11.5-15.5); WBC 13.2 k/uL (3.8-10.6)
--- NOTE | 2022-03-02 09:36 | P.PN ---
Subjective Progress Note Date: 03/02/22 Hospital course: Patient is a Physical exam: Vital signs reviewed and stable. General: Nontoxic, no distress and appears stated age. Derm: Skin warm and dry, normal coloration for ethnicity. Head: Atraumatic, normocephalic and symmetric. Eyes: EOMs intact, no lid lag, and anicteric sclera Mouth: no lip lesions, mucus membranes moist Cardiovascular: regular rate and rhythm with normal S1S2, no murmur, positive posterior tibial pulses bilaterally, and cap refill < 2 seconds. Lungs: Respirations even, regular, and unlabored on room air. Lungs CTA bilaterally, no rhonchi, no rales, no wheezing, and no accessory muscle usage. Abdominal: soft, nontender to palpation, no guarding, no appreciable organomegaly Ext: ROM intact. No gross muscle atrophy, no edema, no contractures Neuro: Speech clear, face symmetrical and CN II-XII grossly intact with no noted focal neuro deficits Psych: Alert and oriented to person, place, time, and situation. Appropriate and pleasant affect. Assessment and Plan of Care: CODE STATUS:[] DVT prophylaxis: [] Discussed with: [] Anticipated discharge date: [] Anticipated discharge place: [] A total of [] minutes was spent on the care of this complex patient more than 50% of the time was spent in counseling and care coordination. Objective - Vital Signs Vital signs: Vital Signs Temp 97.8 F 03/02/22 08:06 Pulse 89 03/02/22 08:06 Resp 20 03/02/22 08:06 BP 168/81 03/02/22 08:06 Pulse Ox 90 L 03/02/22 08:06 FiO2 Intake & Output 03/01/22 03/02/22 03/02/22 18:59 06:59 18:59 Intake Total 120 Balance 120 Intake: Oral 120 Other: Voiding Method Toilet Toilet # Voids 1 1 - Labs CBC & Chem 7: 03/02/22 08:32 03/02/22 08:32 Labs: Abnormal Lab Results - Last 24 Hours (Table) 03/01/22 03/01/22 03/01/22 Range/Units 08:18 11:52 16:49 Neutrophils # (Manual) 9.50 H (1.3-7.7) k/uL Metamyelocytes # (Man) 0.24 H (0) k/uL Myelocytes # (Manual) 0.24 H (0) k/uL POC Glucose (mg/dL) 207 H 221 H (70-110) mg/dL 03/01/22 03/02/22 Range/Units 20:21 05:56 Neutrophils # (Manual) (1.3-7.7) k/uL Metamyelocytes # (Man) (0) k/uL Myelocytes # (Manual) (0) k/uL POC Glucose (mg/dL) 192 H 159 H (70-110) mg/dL Microbiology - Last 24 Hours (Table) 02/26/22 15:25 Blood Culture - Preliminary Blood No Growth after 72 hours
[2022-03-02 09:52] LABS: ALT 23 U/L (4-34); AST 26 U/L (14-36); African American GFR (CKD) >90 (>60 ml/min/1.73 sqM); Albumin 2.8 g/dL (3.5-5.0); Alkaline Phosphatase 58 U/L (38-126); Anion Gap 7 mmol/L; Calcium 8.3 mg/dL (8.4-10.2); Carbon Dioxide 28 mmol/L (22-30); Chloride 103 mmol/L (98-107); Glucose 184 mg/dL (74-99); Magnesium 1.9 mg/dL (1.6-2.3); Non-African American GFR(CKD) >90 (>60 ml/min/1.73 sqM); Potassium 3.5 mmol/L (3.5-5.1); Sodium 138 mmol/L (137-145); Total Bilirubin 0.5 mg/dL (0.2-1.3); Total Protein 5.8 g/dL (6.3-8.2)
--- NOTE | 2022-03-02 10:02 | P.PN ---
Subjective Progress Note Date: 03/02/22 HISTORY OF PRESENT ILLNESS: This is a 61-year-old female who follows in the office with Dr. Abernathy. Patient is admitted to the hospital secondary to pneumonia. Patient was also found to be in A. fib with RVR. She denies a history of atrial fibrillation. This morning, the patient remains in atrial fibrillation with a heart rate around 110. She denies chest pain or pressure. She denies shortness of breath. Vital signs are stable. Chest CTA completed which was negative for PE. Echocardiogram completed revealing ejection fraction 60-65%, mild aortic stenosis, mild tricuspid regurgitation, mild pulmonary hypertension, and severe right ventricular dilatation. 03/02/2022 Patient examined this morning at the bedside. Patient denies chest pain or pressure. She denies SOB. Patient converted to sinus mechanism and is currently maintaining SR this morning. Vital signs are stable. TSH 0.643 PHYSICAL EXAM: VITAL SIGNS: Reviewed. GENERAL: Well-developed in no acute distress. NECK: Supple. No JVD or thyromegaly LUNGS: Respirations even and unlabored. Lungs essentially clear to auscultation bilaterally. HEART: Regular rate and rhythm. S1 and S2 heard. EXTREMITIES: Normal range of motion. No clubbing or cyanosis. Peripheral pulses intact. No lower extremity edema ASSESSMENT: Community acquired pneumonia New onset persistent atrial fibrillation with RVR Acute kidney injury Diabetes Hyponatremia PLAN: Continue anticoagulation with Eliquis Continue current cardiac medications including amio and metoprolol Patient is currently stable from a cardiac standpoint Further recommendations pending patient's course Nurse practitioner note has been reviewed by physician. Signing provider agrees with the documented findings, assessment, and plan of care. Objective - Vital Signs Vital signs: Vital Signs Temp 97.8 F 03/02/22 08:06 Pulse 89 03/02/22 08:06 Resp 20 03/02/22 08:06 BP 168/81 03/02/22 08:06 Pulse Ox 90 L 03/02/22 08:06 FiO2 Intake & Output 03/01/22 03/02/22 03/02/22 18:59 06:59 18:59 Intake Total 120 Balance 120 Intake: Oral 120 Other: Voiding Method Toilet Toilet # Voids 1 1 - Labs CBC & Chem 7: 03/02/22 08:32 03/01/22 08:18 Labs: Abnormal Lab Results - Last 24 Hours (Table) 03/01/22 03/01/22 03/01/22 Range/Units 08:18 11:52 16:49 WBC (3.8-10.6) k/uL RBC (3.80-5.40) m/uL Hgb (11.4-16.0) gm/dL Hct (34.0-46.0) % Neutrophils # (1.3-7.7) k/uL Neutrophils # (Manual) 9.50 H (1.3-7.7) k/uL Metamyelocytes # (Man) 0.24 H (0) k/uL Myelocytes # (Manual) 0.24 H (0) k/uL POC Glucose (mg/dL) 207 H 221 H (70-110) mg/dL 03/01/22 03/02/22 03/02/22 Range/Units 20:21 05:56 08:32 WBC 13.2 H (3.8-10.6) k/uL RBC 3.71 L (3.80-5.40) m/uL Hgb 10.3 L (11.4-16.0) gm/dL Hct 32.9 L (34.0-46.0) % Neutrophils # 10.3 H (1.3-7.7) k/uL Neutrophils # (Manual) (1.3-7.7) k/uL Metamyelocytes # (Man) (0) k/uL Myelocytes # (Manual) (0) k/uL POC Glucose (mg/dL) 192 H 159 H (70-110) mg/dL Microbiology - Last 24 Hours (Table) 02/26/22 15:25 Blood Culture - Preliminary Blood No Growth after 72 hours
[2022-03-02 10:08] LABS: Blood Urea Nitrogen 33 mg/dL (7-17)
[2022-03-02 11:39] VITALS: RESP 16
[2022-03-02 11:40] LABS: Glucose,Whole Blood 265 mg/dL (70-110)
--- NOTE | 2022-03-02 12:26 | P.DS ---
Providers Date of admission: 02/26/22 19:22 Expected date of discharge: 03/02/22 Attending physician: Yolanda Ovalle DO Consults: 02/26/22 19:22 Consult Physician Routine Consulting Provider: Cisco Abernathy Consult Reason/Comments: a-fib, elevated troponin Do you want consulting provider notified?: Yes [facility] Course: Discharge Diagnosis: Community-acquired pneumonia, patient received 5 day course of antibiotics Rocephin and azithromycin and being discharged home on an additional 5 days of doxycycline 100 mg twice daily to total a 10 day antibiotic course. Acute on chronic hypoxic respiratory failure secondary to community-acquired pneumonia and underlying COPD/asthma. Patient was successfully weaned off of oxygen and maintaining SpO2 of 93% at rest and with ambulation in room. New onset atrial fibrillation with RVR. patient being discharged home on anticoagulation with Eliquis and metoprolol and amiodarone for rate control. 39 Hyponatremia, resolved. Acute kidney injury, resolved. Hypertension, monitor vital signs and continue daily medication regimen with metoprolol. Hyperlipidemia, continue heart healthy and carb consistent diet and continue daily medication regimen with atorvastatin. Diabetes, resume Glipizide and Pioglitazone and continue heart healthy and carb consistent diet. Elevated d-dimer, bilateral lower extremity venous Dopplers negative for DVTs and CTA negative for PE. Hospital Course: patient is a very pleasant 61-year-old female with a past medical history of hypertension, hyperlipidemia, diabetes, and COPD/asthma. She presented to the emergency department on 02/26/22 with a 3-5 day history of progressively worsening shortness of breath and cough. She underwent full evaluation in the emergency department. Chest x-ray completed suggestive of pneumonia negative for pleural effusion. EKG revealed new onset atrial fibrillation. labs revealed mild leukocytosis with WBC count of 12.5, hyponatremia with sodium of 128, elevated renal function with BUN of 84, creatinine 1.71, and GFR of 31. Troponin was also elevated at 0.047 with repeat troponin of 0.031 and pro-BMP was 11,900. Covid PCR, influenza A, and influenza B were all negative. Patient was started on anticoagulation with heparin infusion for new onset atrial fibrillation, antibiotics Rocephin and Zithromax for treatment of community-acquired pneumonia and was admitted under our services with consultation to cardiology. D-dimer resulting elevated at 4.55. Bilateral lower extremity venous Dopplers were completed negative for DVTs. CTA completed negative for acute pulmonary emboli. echocardiogram completed revealing normal EF 60-65% with severe right ventricular dilation and mild pulmonary hypertension. Patient remained in atrial fibrillation throughout hospitalization. She was transitioned from IV anticoagulation with heparin to oral anticoagulant with Eliquis daily medication regimen with metoprolol was increased to 100 mg 3 times daily and patient was started on amiodarone. Ventricular rate has been controlled. Patient has been successfully weaned off of oxygen and maintaining SpO2 of 93% at rest and with ambulation and room. Medically patient is stable at this time. She is being discharged home on an additional 5 days of doxycycline to total a 10 day antibiotic treatment course for her community-acquired pneumonia that resulted in an acute on chronic hypoxic respiratory failure. patient to follow up outpatient with her PCP in 1-2 days and cardiology in 1 week. Physical exam: Patient seen and examined at bedside. Vital signs reviewed and stable. General: Nontoxic, no distress and appears stated age. Derm: Skin warm and dry, normal coloration for ethnicity. Head: Atraumatic, normocephalic and symmetric. Eyes: EOMs intact, no lid lag, and anicteric sclera Mouth: no lip lesions, mucus membranes moist Cardiovascular: Irregularly irregular,, systolic murmur, positive posterior tibial pulses bilaterally, and cap refill < 2 seconds. Lungs: Respirations even, regular, and unlabored on room air. Lungs CTA bilaterally, no rhonchi, no rales, no wheezing, and no accessory muscle usage. Abdominal: soft, nontender to palpation, no guarding, no appreciable organomegaly Ext: ROM intact. No gross muscle atrophy, no edema, no contractures Neuro: Speech clear, face symmetrical and CN II-XII grossly intact with no noted focal neuro deficits Psych: Alert and oriented to person, place, time, and situation. Appropriate and pleasant affect. A total of 39 minutes of time were spent preparing this complex discharge summary. Pt was discharged on 03/02/22 11:57 AM. I reviewed the documentation as provided by the ENE above, who is the original author of this note. I agree with the documented assessment and plan, with the following changes: none Patient Condition at Discharge: Stable Plan - Discharge Summary Discharge Rx Participant: No New Discharge Prescriptions: New Amiodarone [Cordarone] 400 mg PO BID #180 tab Apixaban [Eliquis] 5 mg PO BID #60 tab Metoprolol Tartrate [Lopressor] 100 mg PO TID 30 Days #180 tab Doxycycline [Vibramycin] 100 mg PO BID 5 Days #10 capsule Continue Sertraline [Zoloft] 100 mg PO HS Pioglitazone HCl 45 mg PO DAILY Atorvastatin [Lipitor] 40 mg PO HS glipiZIDE [Glucotrol] 10 mg PO BID Fluticasone Propion/Salmeterol [Fluticasone-Salmeterol 113-14] 1 puff INHALATION RT-BID Aspirin EC [Ecotrin Low Dose] 81 mg PO HS Albuterol Sulfate [Albuterol Sulfate Hfa] 2 puff PO RT-Q6H PRN PRN Reason: Shortness Of Breath Discontinued amLODIPine BESYLATE/BENAZEPRIL [amLODIPine BESYLATE/BENAZEPRIL 10-20 MG] 1 tab PO DAILY Metoprolol Tartrate [Lopressor] 100 mg PO BID Discharge Medication List Sertraline [Zoloft] 100 mg PO HS 10/24/13 [History] Atorvastatin [Lipitor] 40 mg PO HS 03/14/18 [History] Pioglitazone HCl 45 mg PO DAILY 03/14/18 [History] glipiZIDE [Glucotrol] 10 mg PO BID 03/14/18 [History] Albuterol Sulfate [Albuterol Sulfate Hfa] 2 puff PO RT-Q6H PRN 02/26/22 [History] Aspirin EC [Ecotrin Low Dose] 81 mg PO HS 02/26/22 [History] Fluticasone Propion/Salmeterol [Fluticasone-Salmeterol 113-14] 1 puff INHALATION RT-BID 02/26/22 [History] Apixaban [Eliquis] 5 mg PO BID #60 tab 03/01/22 [Rx] Amiodarone [Cordarone] 400 mg PO BID #180 tab 03/02/22 [Rx] Doxycycline [Vibramycin] 100 mg PO BID 5 Days #10 capsule 03/02/22 [Rx] Metoprolol Tartrate [Lopressor] 100 mg PO TID 30 Days #180 tab 03/02/22 [Rx] Follow up Appointment(s)/Referral(s): Sandro Foster MD [STAFF PHYSICIAN] - 03/18/22 2:30 pm Raheel Hernandez DO [Primary Care Provider] - 1-2 days Patient Instructions/Handouts: A-fib (Atrial Fibrillation) (DC), Heart Healthy Diet (DC), Community Acquired Pneumonia (DC) Activity/Diet/Wound Care/Special Instructions: Activity: As tolerated. Take breaks as needed. Diet: Heart healthy and carb consistent diet. Avoid salts, or foods with hidden salts such as canned or boxed foods and frozen dinners. Extra salt makes your heart work harder and traps the fluid in your body for longer. Special Instructions: Take all of your medications as directed and remember to keep all of your doctor's appointments and follow-up as needed. You are also being discharged home on a blood thinner, Eliquis. This is very important to take daily as directed until otherwise advised by your fire investigation manager-Dr. Foster. Being that you are being placed on a blood thinner it is very important to watch for any signs of bleeding and notify your doctor immediately if you notice any bleeding. It is also important to remove any trip hazards such as rugs or loose extension cords from your home to prevent unnecessary falls and if you do experience a fall or head injury, it is extremely important to be evaluated by a medical provider immediately to ensure no internal bleeding. Thank you for allowing us to participate in your care, it was truly a pleasure having you for our patient!!! Discharge Disposition: HOME SELF-CARE
[2022-03-02 16:26] VITALS: BP 146/75; PULSE 75; TEMP 98.3
[2022-03-02 16:30] LABS: Glucose,Whole Blood 223 mg/dL (70-110)
== END 2022-03-02 17:23 | disposition home or self-care (01) | DRG 871 ==
LOC: EC 13:38 → 3SCARD 19:22
PROVIDERS: ADMIT Internal Medicine; ATTEND Internal Medicine
DX: A41.9 Sepsis, unspecified organism (principal); I21.A1 Myocardial infarction type 2; J96.21 Acute and chronic respiratory failure with hypoxia; N17.0 Acute kidney failure with tubular necrosis; J18.9 Pneumonia, unspecified organism; E87.1 Hypo-osmolality and hyponatremia; I48.19 Other persistent atrial fibrillation; J44.0 Chronic obstructive pulmonary disease with (acute) lower respiratory infection; Z68.43 Body mass index [BMI] 50.0-59.9, adult; A41.89 Other specified sepsis; E86.0 Dehydration; E11.65 Type 2 diabetes mellitus with hyperglycemia; I08.2 Rheumatic disorders of both aortic and tricuspid valves; E66.01 Morbid (severe) obesity due to excess calories; I10 Essential (primary) hypertension; E78.5 Hyperlipidemia, unspecified; F41.9 Anxiety disorder, unspecified; I27.20 Pulmonary hypertension, unspecified; Z88.0 Allergy status to penicillin; Z88.8 Allergy status to other drugs, medicaments and biological substances; Y95 Nosocomial condition; Z79.01 Long term (current) use of anticoagulants; Z79.82 Long term (current) use of aspirin; Z79.84 Long term (current) use of oral hypoglycemic drugs; Z79.899 Other long term (current) drug therapy; Z98.1 Arthrodesis status
CPT/HCPCS: 36415; 71046; 71275; 80048; 80053; 81001; 83036; 83605; 83735; 83880; 84295; 84443; 84484; 85025; 85379; 85610; 85730; 87040; 87449; 87502; 87635; 93005; 93306; 93970; 94640; 94760; 96361; 96365; 96375; 99285

== ENCOUNTER → 2024-06-12 | Outpatient (CLI) | payer MEDICARE ==
--- NOTE | 2024-06-13 09:54 | MM ---
Reason for Exam: Screening (asymptomatic). Last mammogram was performed 5 year(s) and 3 month(s) ago. Patient History: Menarche at age 11. First Full-Term at age 25. Postmenopausal. Patient used Hormonal Contraceptives for 10 years. 01/25/2012, Benign Core Biopsy on the left side. Maternal grandmother had breast cancer, age 69. Maternal cousin had breast cancer. Mother had breast cancer, age 59. Risk Values: Gabriela 5 year model risk: 3.9%. NCI Lifetime model risk: 13.5%. Prior Study Comparison: 02/03/2017 Bilateral Screening Mammogram, [facility]. 03/23/2018 Bilateral Screening Mammogram, [facility]. 03/25/2019 Bilateral Screening Mammogram, [facility]. Tissue Density: There are scattered areas of fibroglandular density. Findings: Analyzed By CAD. There is no suspicious group of microcalcifications or new suspicious mass in either breast. Overall Assessment: Benign, BI-RAD 2 Management: Screening Mammogram of both breasts in 1 year. . Patient should continue monthly self-breast exams. A clinical breast exam by your physician is recommended on an annual basis. This exam should not preclude additional follow-up of suspicious palpable abnormalities. Note on Gabriela scores and lifetime risk: 1. A Gabriela score greater than 3% is considered moderate risk. If this is the case, consider specialist referral to assess eligibility for a risk reducing agent. 2. If overall lifetime risk for the development of breast cancer is 20% or higher, the patient may qualify for future screening with alternating mammogram and breast MRI. [facility], , 06/13/2024 9:51 AM. Electronically signed and approved by: Vaibhav Jaimes M.D. Radiolog[facility]
== END | disposition home or self-care (01) ==
LOC: RADMAMWWP 09:16
PROVIDERS: ATTEND Family Medicine
DX: Z12.31 Encounter for screening mammogram for malignant neoplasm of breast (principal); Z78.0 Asymptomatic menopausal state; Z80.3 Family history of malignant neoplasm of breast; R92.323 Mammographic fibroglandular density, bilateral breasts
CPT/HCPCS: 77063; 77067